=== PATIENT | female | born 1950 | race Caucasian/White ===

== ENCOUNTER → 2018-12-01 14:42 | Outpatient (CLI) | payer BC, MEDICARE, OTHER, SELFPAY ==
--- NOTE | 2018-12-01 | DI.ECHO.S_ITS ---
[facility] +---------+ : : [address] : [address] : : : : [place], : : : : [place] [id number] : : : : Phone: [phone] [id number] Echocardiogram Report + + :Name: AMAN JERONIMO Study Date: 12/01/2018 Height: 62 in : :[facility] Weight: 145 lb : : Gender: Female BSA: 1.7 m2 : :: 1950 Age: 68 yrs BP: 148/60 mmHg: :Reason For Study: DIZZINESS : :Ordering Physician: Judy : :Erika Montiel Performed By: Janis Mosquera : :Referring: JUDY HERRERA : + + Interpretation Summary Normal sinus rhythm. Normal LV size, wall thickness, wall motion and LV sysotlic function. EF is 60-65%. Severe LA enlargement with aneurysmal interatrial septum. Aortic sclerosis without stenosis. Mild MAC with mild associated MR. Procedure: A two-dimensional transthoracic echocardiogram with color flow and Doppler was performed. The study quality was technically adequate. There is no prior echocardiogram noted for this patient. The patient was in normal sinus rhythm during the exam. Left Ventricle: The left ventricle is normal in size, wall thickness, and systolic function without any focal wall motion abnormalities. The ejection fraction is estimated to be 60-65%. Diastolic parameters suggest a relaxation abnormality of the left ventricle, consistent with probable normal filling pressures. Right Ventricle: The right ventricle is normal in size and function. Atria: The left atrium is severely dilated. Right atrial size is normal. The atrial septum is aneurysmal. The interatrial septum bows toward right atrium consistent with elevated left atrial pressure. Mitral Valve: The mitral valve leaflets appear mildly thickened, but open well. There is mild mitral annular calcification. There is mild mitral regurgitation. Aortic Valve: The aortic valve is trileaflet. There is mild aortic valve sclerosis. The aortic valve opens well. There is discrete nodular thickening of the non- coronary cusp. There is trace aortic regurgitation. Tricuspid Valve: The tricuspid valve is normal. There is trace tricuspid regurgitation. The right ventricular systolic pressure is estimated to be at least 18 mmHg based on an estimated right atrial pressure of 3 mm Hg. Pulmonic Valve: The pulmonic valve is not well seen, but is grossly normal. There is trace pulmonic regurgitation. Great Vessels: The aortic root is normal size. The ascending aorta is normal in size. The aortic arch could not be visualized. The pulmonary is not well visualized. The IVC is of normal diameter and collapses greater than 50% with a sniff. This suggests a low right atrial pressure of 3 mm Hg. Pericardium/ Pleura There is no pericardial effusion. There is no pleural effusion. MMode/2D Measurements & Calculations LVIDd: 4.6 cm AoV Openin.60 cm LVIDs: 2.2 cm LVOT diam: 1.8 cm IVSd: 0.96 cm Ao root diam: 3.1 cm LVPWd: 0.95 cm asc Aorta Diam: 3.4 cm LV pacheco. diameter/BSA (cm/m^2): 2.7 LV sys. diameter/BSA (cm/m^2): 1.3 FS: 51.8 % EPSS: 0.35 cm LA A2 area: 23.1 cm2 RA long axis: 4.7 cm LA A4 area: 30.7 cm2 RA area: 12.9 cm2 LA length (vol): 5.6 cm RA vol: 29.7 ml LA vol: 106.6 ml RA : 17.8 ml/m2 LA vol index: 63.9 ml/m2 RVD1 (basal): 3.5 cm IVC diam: 1.5 cm RVD2 (mid): 2.6 cm TAPSE: 2.5 cm Doppler Measurements & Calculations Ao V2 max: 126.7 cm/sec LVOT Max Mehran: 105.6 cm/sec Ao V2 mean: 92.3 cm/sec LV V1 max P.5 mmHg Ao V2 VTI: 34.3 cm LV V1 VTI: 23.5 cm Ao max P.4 mmHg Ao mean P.7 mmHg LOKESH(I,D): 1.8 cm2 MV E max mehran: 108.8 cm/sec LOKESH(V,D): 2.2 cm2 MV A max mehran: 94.6 cm/sec LOKESH indexed to BSA (cm^2/m^2): 1.1 MV E/A: 1.1 sev ratio: 0.68 Med Peak E' Mehran: 5.6 cm/sec E/E' med: 19.5 Lat Peak E' Mehran: 6.3 cm/sec E/E' lat: 17.2 E/e' average: 18.4 MV dec time: 0.21 sec TR max mehran: 191.3 cm/sec TR max P.6 mmHg PA V2 max: 61.4 cm/sec SV(LVOT): 62.4 ml PA V2 mean: 44.9 cm/sec PA mean P.89 mmHg PA Accel Time: 0.06 sec Electronically signed by: Judy Herrera M.D. on Reading Physician:12/01/2018 05:50 PM
== END ==
PROVIDERS: PCP Internal Medicine; Visit Provider Internal Medicine
DX: I08.0 Rheumatic disorders of both mitral and aortic valves (principal); I25.3 Aneurysm of heart; R42 Dizziness and giddiness
CPT/HCPCS: 93306

== ENCOUNTER → 2018-12-04 14:16 | Outpatient (CLI) | payer BC, MEDICARE, OTHER, SELFPAY | PROVIDERS: PCP Internal Medicine; Visit Provider Internal Medicine | DX: M81.0 Age-related osteoporosis without current pathological fracture (principal); Z78.0 Asymptomatic menopausal state | CPT/HCPCS: 77080 ==

== ENCOUNTER → 2020-03-24 07:17 | Outpatient (CLI) | payer BC, MEDICARE, OTHER, SELFPAY ==
--- NOTE | 2020-03-24 | DI.MRI.S_ITS ---
PROCEDURE: MR FOOT LT WO/W CON INDICATIONS: 1st digit infection. TECHNIQUE: Noncontrast sagittal T1 spin echo and T2 fast spin echo with fat saturation, long-axis T1 spin echo and T2 fast spin echo with fat saturation; short-axis T1 spin echo, proton density fast spin echo, and T2 fast spin echo with fat saturation through the forefoot. Post-contrast short axis, long axis, and sagittal T1 spin echo with fat saturation through the forefoot. COMPARISON: [facility], MR, FOOT W&WO CONTRAST, 08/24/2015, 13:34. FINDINGS: Image quality: Partially degraded by inhomogeneous fat saturation of the digits. Bones and joints: There irregularity of the cortex of the distal tuft of the 1st digit with possible chronic fracture of the distal tuft. No suspicious osseous enhancement. No bone marrow contusions or metatarsal stress fractures. The sesamoid bones appear in expected positions, without internal edema. No metatarsophalangeal joint degeneration. No intraosseous lesions. Soft tissues: No suspicious soft tissue enhancement. There is moderate T2 signal elevation within the superficial dorsal soft tissues of the forefoot, which could indicate edema or cellulitis. There is mild ill-defined T2 signal elevation within the subcutaneous fat of the forefoot, also consistent with edema versus cellulitis. The visualized plantar foot muscles demonstrate normal signal and bulk. Visualized flexor and extensor tendons appear intact, without tenosynovitis. The distal insertions of the peroneus brevis and longus tendons appear intact. The principal Lisfranc ligament appears intact. No soft tissue ganglion cysts or bursal fluid collections. Sagittal images demonstrate no evidence for plantar plate tears. IMPRESSION: 1. No evidence of acute osteomyelitis. 2. Irregularity of the distal tuft of the 1st digit, suggestive of chronic fracture deformity and/or chronic osteomyelitis sequelae. Initial further assessment with plain films is recommended. 3. Superficial edema versus cellulitis within the dorsal and plantar aspects of the forefoot. Dictated by: Rosmery Jeffries M.D. on 03/24/2020 at 9:12 Approved by: Rosmery Jeffries M.D. on 03/24/2020 at 9:35
== END ==
PROVIDERS: PCP Internal Medicine; Referring Provider Internal Medicine; Visit Provider Internal Medicine
DX: L03.032 Cellulitis of left toe (principal)
CPT/HCPCS: 73720

== ENCOUNTER → 2020-03-31 11:41 | Outpatient (CLI) | payer BC, MEDICARE, OTHER, SELFPAY ==
--- NOTE | 2020-03-31 | DI.RAD.S_ITS ---
PROCEDURE: XR FOOT LT MIN 3V INDICATIONS: LEFT FOOT PAIN TECHNIQUE: 3 views of the foot were acquired. COMPARISON: [facility], CR, FOOT 3V RIGHT, 01/30/2010, 9:01. [facility], MR, MR FOOT LT WO/W CON, 03/24/2020, 7:43. FINDINGS: Bones: No acute fracture or dislocation. Cortical thinning is noted at the distal aspect of the distal phalanx of the left 1st digit. No other suspicious bony lesions. No acute fracture or dislocation. Soft tissues: No tibiotalar joint effusion. Achilles tendon appears normal. IMPRESSION: Cortical changes of the distal aspect of the left 1st digit suspicious for osteomyelitis as described on the comparison MRI dated March 24, 2020. Dictated by: Elissa Soto M.D. on 03/31/2020 at 14:40 Approved by: Elissa Soto M.D. on 03/31/2020 at 14:41
== END ==
PROVIDERS: PCP Internal Medicine; Referring Provider Internal Medicine; Visit Provider Podiatrist
DX: M79.672 Pain in left foot (principal)
CPT/HCPCS: 73630

== ENCOUNTER → 2020-04-20 12:34 | Outpatient (ROUT) | payer BC, MEDICARE, OTHER, SELFPAY ==
[2020-04-20 12:40] LABS: Add Manual Diff / Slide Review NO; Basophils Absolute Auto 0 /uL (0-100); Basophils Percent Auto 0.1 % (0-2); Eosinophils Absolute Auto 100 /uL (0-450); Eosinophils Percent Auto 2.4 % (2-4); Hematocrit 29.4 % (36-46); Lymphocytes Absolute Auto 700 /uL (1100-4500); Lymphocytes Percent Auto 21.8 % (25-40); Mean Corpuscular HGB Conc 33.9 % (30-36); Mean Corpuscular Hemoglobin 27.6 PG (26-34); Mean Corpuscular Volume 81.3 fL (80-100); Monocytes Absolute Auto 300 /uL (0-900); Monocytes Percent Auto 8.1 % (3-14); Neutrophils Absolute Auto 2100 /uL (1500-7000); Neutrophils Percent Auto 67.6 % (50-75); Platelet Count 69 X10^3/uL (150-400); Red Blood Cell Count 3.62 X10^6/uL (4.0-5.2); White Blood Cell Count 3.2 X10^3/uL (4.5-11.0)
[2020-04-20 13:30] LABS: BUN Creatinine Ratio 27.8 (6-22); Blood Urea Nitrogen 20 mg/dL (7-17); Calcium 8.8 mg/dL (8.4-10.2); Carbon Dioxide 26 mmol/L (22-32); Chloride 98 mmol/L (98-107); Estimated Glomerular Filt Rate > 60.0 mL/min (>60); Glucose 175 mg/dL (80-110); HEMOLYSIS < 15 (0-50); Sodium 131 mmol/L (137-145)
== END ==
PROVIDERS: PCP Internal Medicine; Visit Provider Internal Medicine Infectious Disease
DX: M86.9 Osteomyelitis, unspecified (principal)
CPT/HCPCS: 80048; 85025

== ENCOUNTER → 2020-07-11 15:15 | Outpatient (CLI) | payer BC, MEDICARE, OTHER, SELFPAY | PROVIDERS: PCP Internal Medicine; Referring Provider Surgery; Visit Provider Family Medicine | DX: I73.9 Peripheral vascular disease, unspecified (principal); T87.89 Other complications of amputation stump; L97.521 Non-pressure chronic ulcer of other part of left foot limited to breakdown of skin; M34.1 CR(E)ST syndrome | CPT/HCPCS: 99203; 99214 ==

== ENCOUNTER → 2020-07-18 13:47 | Outpatient (CLI) | payer BC, MEDICARE, OTHER, SELFPAY | PROVIDERS: PCP Internal Medicine; Referring Provider Internal Medicine; Visit Provider Family Medicine | DX: L97.521 Non-pressure chronic ulcer of other part of left foot limited to breakdown of skin (principal) | CPT/HCPCS: 99212 ==

== ENCOUNTER → 2020-08-03 11:17 | Outpatient (CLI) | payer BC, MEDICARE, OTHER, SELFPAY | PROVIDERS: PCP Internal Medicine; Referring Provider Internal Medicine; Visit Provider Family Medicine | DX: I73.9 Peripheral vascular disease, unspecified (principal); L97.521 Non-pressure chronic ulcer of other part of left foot limited to breakdown of skin; T87.89 Other complications of amputation stump; M34.1 CR(E)ST syndrome; Z89.511 Acquired absence of right leg below knee | CPT/HCPCS: 99213 ==

== ENCOUNTER → 2020-08-03 12:44 | Outpatient (CLI) | payer BC, MEDICARE, OTHER, SELFPAY ==
--- NOTE | 2020-08-03 12:51 | DI.RAD.S_ITS ---
PROCEDURE: XR TOE LT MIN 2V INDICATIONS: EVAL 3rd toe TECHNIQUE: 3 views of the left 3rd toe(s) acquired. COMPARISON: [facility], [facility], XR FOOT LT MIN 3V, 03/31/2020, 11:51. [facility], [facility], TOE MINIMUM 2 VIEWS LEFT, 10/24/2012, 16:18. FINDINGS: Bones: Status post postoperative changes of interval amputation of the left great toe at the level of the mid diaphysis of the 1st proximal phalanx. No osseous erosions, fractures, or suspicious abnormalities identified in the left toe. No acute fractures or dislocations. No suspicious bony lesions. Soft tissues: No suspicious soft tissue densities. There is mild soft tissue swelling of the left forefoot. IMPRESSION: 1. Mild soft tissue swelling of the left forefoot and 3rd toe without suspicious underlying osseous abnormalities. If there is persistent high clinical concern for osteomyelitis, MRI can be considered for further evaluation. 2. Status post interval amputation of the left great toe at the level of the mid diaphysis of the proximal 1st phalanx. Dictated by: Linden Hayden M.D. on 08/03/2020 at 13:33 Approved by: Linden Hayden M.D. on 08/03/2020 at 13:38
== END ==
PROVIDERS: PCP Internal Medicine; Referring Provider Family Medicine; Visit Provider Family Medicine
DX: L97.521 Non-pressure chronic ulcer of other part of left foot limited to breakdown of skin (principal); M79.89 Other specified soft tissue disorders; Z89.412 Acquired absence of left great toe
CPT/HCPCS: 73660

== ENCOUNTER → 2020-08-24 09:17 | Outpatient (CLI) | payer BC, MEDICARE, OTHER, SELFPAY | PROVIDERS: PCP Internal Medicine; Referring Provider Internal Medicine; Visit Provider Family Medicine | DX: I73.9 Peripheral vascular disease, unspecified (principal); S61.200A Unspecified open wound of right index finger without damage to nail, initial encounter; L97.529 Non-pressure chronic ulcer of other part of left foot with unspecified severity; Z89.511 Acquired absence of right leg below knee; Z89.412 Acquired absence of left great toe; M34.1 CR(E)ST syndrome | CPT/HCPCS: 97597; 99214 ==

== ENCOUNTER → 2020-09-29 11:50 | Outpatient (CLI) | payer BC, MEDICARE, OTHER, SELFPAY | PROVIDERS: PCP Internal Medicine; Referring Provider Internal Medicine; Visit Provider Family Medicine | DX: I70.245 Atherosclerosis of native arteries of left leg with ulceration of other part of foot (principal); S61.200A Unspecified open wound of right index finger without damage to nail, initial encounter; L97.529 Non-pressure chronic ulcer of other part of left foot with unspecified severity; Z89.511 Acquired absence of right leg below knee; Z89.412 Acquired absence of left great toe; Z95.5 Presence of coronary angioplasty implant and graft; M34.1 CR(E)ST syndrome | CPT/HCPCS: 97597; 99213 ==

== ENCOUNTER → 2020-12-21 16:24 | Outpatient (CLI) | payer BC, MEDICARE, OTHER, SELFPAY ==
--- NOTE | 2020-12-21 | DI.US.S_ITS ---
PROCEDURE: US ABDOMEN LIMITED INDICATIONS: ELEVATED LIVER FUNCTION TEST TECHNIQUE: Real-time scanning was performed of the abdominal and retroperitoneal organs, with image documentation. COMPARISON: None. FINDINGS: Liver: Liver is normal in size and homogeneous in echotexture. Gallbladder: Nondilated. Avascular isoechoic/echogenic masslike focus measuring at 3.1 x 2.1 x 1.6 cm. This appears to extend to the proximal cystic duct. No posterior acoustic shadowing. Normal gallbladder wall thickness. No pericholecystic fluid. Negative sonographic Huang's sign. Biliary ducts: Intrahepatic bile ducts are non-dilated. Extrahepatic bile duct caliber measures 6 mm. Normal is 6-7 mm or less in diameter, or 10 mm or less post-cholecystectomy. Pancreas: Visualized portions of the pancreas are sonographically normal. IMPRESSION: 1. Masslike material within the gallbladder measuring 3.1 cm. No internal vascularity is demonstrated. This has the appearance of tumefactive sludge. Gallstone or gallbladder carcinoma could have a similar appearance. -Recommend MRI or CT with IV contrast for further characterization to exclude enhancing lesion. 2. No acute cholecystitis. 3. No biliary ductal dilatation seen. Dictated by: Tripp Kern M.D. on 12/21/2020 at 17:36 Approved by: Tripp Kern M.D. on 12/21/2020 at 17:42
== END ==
PROVIDERS: PCP Internal Medicine; Referring Provider Physician Assistant; Visit Provider Physician Assistant
DX: R79.89 Other specified abnormal findings of blood chemistry (principal); K82.9 Disease of gallbladder, unspecified; K80.20 Calculus of gallbladder without cholecystitis without obstruction
CPT/HCPCS: 76705

== ENCOUNTER → 2021-03-20 13:26 | Outpatient (CLI) | payer BC, MEDICARE, OTHER, SELFPAY | PROVIDERS: PCP Internal Medicine; Referring Provider Internal Medicine; Visit Provider Family Medicine | DX: T87.89 Other complications of amputation stump (principal); I73.9 Peripheral vascular disease, unspecified; L97.521 Non-pressure chronic ulcer of other part of left foot limited to breakdown of skin; Z89.511 Acquired absence of right leg below knee | CPT/HCPCS: 99214 ==

== ENCOUNTER → 2021-03-20 14:59 | Outpatient (CLI) | payer BC, MEDICARE, OTHER, SELFPAY ==
--- NOTE | 2021-03-20 | DI.RAD.S_ITS ---
PROCEDURE: XR CHEST 2V INDICATIONS: Asthma,eval for ostemycitis TECHNIQUE: 2 views of the chest were acquired. COMPARISON: [facility], , CHEST 2 VIEW, 06/11/2017, 17:09. FINDINGS: Surgical changes and devices: None. Lungs and pleura: Lungs are clear. Mild hyperinflation is seen. No pleural effusions or pneumothorax. Mediastinum: Mediastinal contours are normal. Heart size is normal. Bones and chest wall: No suspicious bony abnormalities. Soft tissues appear unremarkable. IMPRESSION: No acute cardiopulmonary pathology. Mild hyperinflation. Dictated by: Ruben Stiles M.D. on 03/20/2021 at 16:01 Approved by: Ruben Stiles M.D. on 03/20/2021 at 16:01
--- NOTE | 2021-03-20 | DI.RAD.S_ITS ---
PROCEDURE: XR FOOT LT MIN 3V INDICATIONS: Asthma,eval for ostemycitis TECHNIQUE: 3 views of the foot were acquired. COMPARISON: [facility], CR, XR FOOT LT MIN 3V, 03/31/2020, 11:51. FINDINGS: Bones: Patient is status post interval amputation of left great toe at the level of 1st distal phalangeal base. Surgical margin appears clean. There is also amputation of 3rd toe at the level of 3rd middle phalangeal shaft with with questionable erosive changes involving 3rd middle phalangeal stump. No acute fracture or dislocation. Midfoot and forefoot joint osteoarthritic changes are seen. No suspicious bony lesions. Soft tissues: No tibiotalar joint effusion. Achilles tendon appears normal. IMPRESSION: Post amputation changes at 1st and 3rd toes as above. Finding is concerning for osteomyelitis involving 3rd middle phalangeal stump with subtle erosive changes. No fracture or dislocation. Surgical margin of great toe is grossly intact. Dictated by: Ruben Stiles M.D. on 03/20/2021 at 16:01 Approved by: Ruben Stiles M.D. on 03/20/2021 at 16:04
== END ==
PROVIDERS: PCP Internal Medicine; Referring Provider Family Medicine; Visit Provider Family Medicine
DX: S91.102A Unspecified open wound of left great toe without damage to nail, initial encounter (principal); J45.909 Unspecified asthma, uncomplicated; Z89.412 Acquired absence of left great toe; Z89.422 Acquired absence of other left toe(s)
CPT/HCPCS: 71046; 73630

== ENCOUNTER 2021-06-21 12:08 | Emergency (ER) | payer BC, MEDICARE, OTHER, SELFPAY ==
[2021-06-21 12:23] VITALS: BP 136/60; PULSE 60; RESP 18; TEMP 36.6; BMI 24.7
--- NOTE | 2021-06-21 13:16 | ED_ITS ---
HPI - Extremity Problem <Reynaldo Bach PA-C - Last Filed: 06/21/21 19:49> General Chief complaint: Extremity Problem,Nontraumatic Stated complaint: Left elbow infection x1 day Time Seen by Provider: 06/21/21 12:57 Source: patient Mode of arrival: Ambulatory Limitations: no limitations History of Present Illness HPI Narrative: Patient is a 70-year-old female presenting to the emergency department today for an evaluation of left elbow pain. Patient states that she experienced clear drainage from an opening of a callus on her left elbow 3 nights ago. She explains that she cleaned the wound and covered it with the peers in and she notes that it appeared to be improving throughout Saturday and Saturday. However, she notes that last night she began to experience increased redness, swelling, warmth, and pain in her left elbow. Patient denies fever, chills, chest pain, shortness of breath, cough, abdominal pain, nausea, vomiting, diarrhea, dysuria. Patient explains that she experienced similar symptoms in the past on her right elbow that she successfully treated at home by herself. No other concerns voiced at this time. Related Data Home Medications Medication Instructions Recorded Confirmed aspirin 81 mg tablet,delayed 81 mg PO QDAY #0 11/14/12 06/22/21 release fluticasone 250 mcg-salmeterol 50 1 ea INHALATION BID #0 11/14/12 06/22/21 mcg/dose blistr powdr for inhalation (Advair Diskus) ibuprofen 200 mg tablet 400 mg PO PRN #0 11/14/12 06/22/21 atorvastatin 80 mg tablet (Lipitor) 80 mg PO DAILY 09/30/18 06/22/21 fluticasone 500 mcg-salmeterol 50 1 inhalation INHALATION BID 09/30/18 06/22/21 mcg/dose blistr powdr for inhalation (Advair Diskus) ipratropium 20 mcg-albuterol 100 1 puff INHALATION Q4HR 09/30/18 06/22/21 mcg/actuation mist for inhalation (Combivent Respimat) metoclopramide HCl 5 mg tablet 5 mg PO BEDTIME 09/30/18 06/22/21 (Reglan) montelukast 10 mg tablet 10 mg PO QPM 09/30/18 06/22/21 (Singulair) olmesartan 40 mg tablet (Benicar) 40 mg PO BEDTIME 09/30/18 06/22/21 omeprazole 20 mg capsule,delayed 20 mg PO BEDTIME 09/30/18 06/22/21 release pregabalin 200 mg capsule (Lyrica) 200 mg PO BID cap 09/30/18 06/23/21 sertraline 25 mg tablet 25 mg PO BEDTIME 09/30/18 06/22/21 amlodipine 5 mg tablet 5 mg PO BEDTIME 06/23/21 06/23/21 melatonin 5 mg PO BEDTIME 06/23/21 06/23/21 Previous Rx's Medication Instructions Recorded doxycycline hyclate 100 mg capsule 100 mg PO BID #14 cap 06/21/21 oxycodone 5 mg tablet 5 mg PO Q6H PRN #10 tab 06/21/21 Allergies Allergy/AdvReac Type Severity Reaction Status Date / Time cat dander Allergy Verified 06/22/21 14:03 nifedipine Allergy Verified 06/22/21 14:03 codeine [CODEINE] AdvReac Unknown N/V Verified 06/22/21 14:03 Review of Systems <Reynaldo Bach PA-C - Last Filed: 06/21/21 19:49> Constitutional Constitutional: Denies chills, Denies fatigue, Denies fever(s), Denies frequent falls, Denies lethargy and Denies weakness Eyes Eyes: Denies loss of vision ENT Ears, Nose, Mouth, and Throat: Denies dizziness, Denies neck pain and Denies throat swelling Cardiovascular Cardiovascular: Denies chest pain, Denies irregular heart rhythm, Denies lightheadedness, Denies palpitations, Denies dyspnea, Denies dyspnea on exertion and Denies orthopnea Respiratory Respiratory: Denies cough, Denies dyspnea, Denies dyspnea on exertion and Denies wheezing Gastrointestinal Gastrointestinal: Denies abdominal pain, Denies change in bowel habits, Denies diarrhea, Denies nausea and Denies vomiting Genitourinary Genitourinary: Denies hematuria, Denies flank pain, Denies urinary incontinence and Denies urinary urgency Musculoskeletal Musculoskeletal: Denies back pain, Reports arthralgias (Left elbow), Denies muscle weakness, Denies neck pain, Denies numbness and Denies tingling Integumentary/Breasts Skin/Breast: Reports erythema (Left elbow) and Reports skin swelling (Left elbow) Neurologic Neurologic: Denies behavioral changes, Denies confusion, Denies dizziness, Denies frequent falls, Denies loss of vision, Denies numbness, Denies tingling and Denies weakness Psychiatric Psychiatric: Denies behavioral changes and Denies confusion Endocrine Endocrine: Denies fatigue and Denies palpitations Allergic/Immunologic Allergic/Immunologic: Denies urticaria, Denies throat swelling and Denies wheezing Patient History <Reynaldo Bach PA-C - Last Filed: 06/21/21 19:49> Medical History Hyperlipidemia Hypertension Peripheral vascular disease Scleroderma Social History marital status: details: Spouse is retired physician household members: spouse Smoking Status: Never smoker alcohol intake: former Smoking Status: Never smoker Substance Use Type: does not use Exam <Reynaldo Bach PA-C - Last Filed: 06/21/21 19:49> Narrative Exam Narrative: GENERAL: 70 year old patient appears stated age. Well-developed patient, in no acute distress. HEAD: Atraumatic. Normocephalic. EYES: Pupils equal round and reactive. Extraocular motions intact. No scleral icterus. No injection or drainage. ENT: Nose without bleeding, purulent drainage. Throat without erythema, tonsillar hypertrophy or exudate. Airway patent. NECK: Trachea midline. Non tender CARDIOVASCULAR: Regular rate and rhythm without murmurs, gallops, or rubs. RESPIRATORY: Clear to auscultation. Breath sounds equal bilaterally. No wheezes, rales, or rhonchi. GASTROINTESTINAL: Abdomen soft, non-tender, nondistended. EXTREMITIES: No edema. Tenderness to palpation about the left elbow with an approximately 2.5 cm area erythema, fluctuance, and warmth with an overlying scab. BACK: Nontender without deformity or crepitance. No flank tenderness. NEURO: AOx3. SKIN: No rash or erythema of visible areas Initial Vital Signs Initial Vital Signs: Vital Signs Temperature 97.9 F 06/21/21 12:23 Pulse Rate 60 06/21/21 12:23 Respiratory Rate 18 06/21/21 12:23 Blood Pressure 136/60 06/21/21 12:23 <Graham Méndez DO - Last Filed: 06/23/21 07:17> Initial Vital Signs Initial Vital Signs: Vital Signs Temperature 97.9 F 06/21/21 12:23 Pulse Rate 60 06/21/21 12:23 Respiratory Rate 18 06/21/21 12:23 Blood Pressure 136/60 06/21/21 12:23 Procedures <Reynaldo Bach PA-C - Last Filed: 06/21/21 19:49> Abscess I/D I&D #1: Time of procedure: 14:50 Site: upper extremity (Left elbow) Side (if applicable): left Sedation/analgesia: none Local Anesthetic: lidocaine 1% Amount of anesthesia used (mL): 10 Technique: incised with #11 blade Amount of fluid expressed (mL): 6 Irrigation: No Packing used?: none Complications: pain Course <Reynaldo Bach PA-C - Last Filed: 06/21/21 19:49> Course Course Narrative: Patient is a 70-year-old female presenting to the emergency department today for an evaluation of left elbow pain. Orders Ordered: Discontinued Medications Lidocaine/Sodium Bicarbonate (Lido 1%/Sod Bicarb 8.4% (10ml) 10 Ml Syringe) 10 ml INJ NOW ONE Stop: 06/21/21 13:36 Last Admin: 06/21/21 15:22 Dose: 10 ml Documented by: LOLI Vital Signs Vital signs: Vital Signs - 8 hr 06/21/21 12:23 Temperature 97.9 F Pulse Rate 60 Respiratory Rate 18 Blood Pressure 136/60 <Graham Méndez DO - Last Filed: 06/23/21 07:17> Orders Ordered: Discontinued Medications Lidocaine/Sodium Bicarbonate (Lido 1%/Sod Bicarb 8.4% (10ml) 10 Ml Syringe) 10 ml INJ NOW ONE Stop: 06/21/21 13:36 Last Admin: 06/21/21 15:22 Dose: 10 ml Documented by: LOLI Vital Signs Vital signs: Vital Signs - 8 hr 06/21/21 12:23 Temperature 97.9 F Pulse Rate 60 Respiratory Rate 18 Blood Pressure 136/60 MDM - Extremity (Nontraumatic) <SAQIB Thomas Last Filed: 06/21/21 19:49> MDM Narrative Medical decision making narrative: Patient is a 70-year-old female presenting to the emergency department today for an evaluation of left elbow pain. To consider septic joint versus abscess. Overall history and physical examination are reassuring. Culture of wound was obtained after drainage was expressed from the wound during I and D procedure. Explained to the patient importance of monitoring the progress of the wound. Urged the patient to keep the wound clean and dry. Strict return precautions were discussed with the patient prior to discharge. Discharge Plan Departure Patient Disposition: Home Clinical Impression: Abscess Instructions: DI for Wound Infection Activity Restrictions/Additional Instructions: *You have been diagnosed with left elbow abscess *What to do: *Please continue to take your regular medications as directed. [X] New medication prescriptions sent to your pharmacy: [facility] - Doxycycline [X] New medication written as a paper prescription - Oxycodone [ ] No new medications given *Please follow up with your primary care provider in 24-48 hours, call for an appointment. Let them know you were seen in the Emergency Department and that we ask that you be seen in follow up. We will electronically transmit a record of today's note if your PCP is in our system *If you do not have a primary care provider please contact the [facility] Resource line at [phone]. They will ask some questions about your medical history and help get you set up with a doctor in the community. *Return to Emergency Department if you should have any new, worsening or concerning symptoms, such as fever greater than 101 F, shaking chills, worsening pain, worsening swelling, worsening drainage, persistent vomiting or other bothersome symptoms Prescriptions: New doxycycline hyclate 100 mg capsule 100 mg PO BID Qty: 14 0RF oxycodone 5 mg tablet 5 mg PO Q6H PRN (Reason: pain) Qty: 10 0RF No Action sertraline 25 mg tablet 25 mg PO BEDTIME 0RF Rx Instructions: take 3 tablets at bedtime. Advair Diskus 500-50 mcg/dose blister with device 1 inhalation INHALATION BID 0RF omeprazole 20 mg capsule,delayed release(DR/EC) 20 mg PO BEDTIME 0RF Combivent Respimat 20-100 mcg/actuation mist 1 puff INHALATION Q4HR 0RF atorvastatin [Lipitor] 80 mg tablet 80 mg PO DAILY 0RF olmesartan [Benicar] 40 mg tablet 40 mg PO BEDTIME 0RF montelukast [Singulair] 10 mg tablet 10 mg PO QPM 0RF metoclopramide HCl [Reglan] 5 mg tablet 5 mg PO BEDTIME 0RF Lyrica 200 mg capsule 200 mg PO BID 0RF fluticasone propion-salmeterol [Advair Diskus] 250 MCG/50 MCG blister with device 1 ea inhalation BID Qty: 0 0RF aspirin 81 MG tablet,delayed release (DR/EC) 81 mg PO QDAY Qty: 0 0RF ibuprofen 200 MG tablet 400 mg PO PRN Qty: 0 0RF amlodipine 5 mg tablet 5 mg PO BEDTIME 0RF melatonin 5 mg PO BEDTIME 0RF Referrals: Daron Pinto MD [Primary Care Provider] - <Graham Méndez DO - Last Filed: 06/23/21 07:17> Cosign ED Attending Cosignature Attestation: Dr Méndez Co-Sign Statement: I was available for consultation during this patient's emergency department visit. This chart is signed by myself for administrative purposes only. I did not have direct contact with this patient during this visit. They were seen independently by the APC.
[2021-06-21] MEDS: LIDO 1%/SOD BICARB 8.4% (10ML) 10 ML SYRINGE INJ (15:22)
== END 2021-06-21 15:23 | disposition home or self-care (01) ==
PROVIDERS: Emergency Provider Physician Assistant; PCP Internal Medicine
DX: L02.414 Cutaneous abscess of left upper limb (principal)
CPT/HCPCS: 10060; 87070; 87075; 87077; 87147; 87205; 99282

== ENCOUNTER 2021-06-22 09:58 | Inpatient (IN) | payer BC, MEDICARE, OTHER, SELFPAY ==
[2021-06-22] VITALS (14 sets, daily range): BP systolic 93–138; BP diastolic 44–55; PULSE 68–89; RESP 14–22; TEMP 36.3–37.1; O2SAT 92–96; BMI 24.7
--- NOTE | 2021-06-22 10:05 | ED.GENADULT ---
HPI - General Adult General Chief complaint: Extremity Problem,Nontraumatic Stated complaint: IND left elbow yesterday, fever, swelling Time Seen by Provider: 06/22/21 10:05 History of Present Illness HPI narrative: 70-year-old woman with a history of scleroderma of her hands, significant peripheral vascular disease with no personal history myocardial infarction or stroke, hypertension, hyperlipidemia asthma was seen yesterday in the emergency department with fluctuant area over her left elbow that was I and D. She was started on doxycycline. She returns today after developing a fever to 103 this morning, chills and rigors, increasing pain along the left arm and swelling down into her hand. There is continued drainage from the I&D site from yesterday over the olecranon. She denies vomiting, abdominal pain, diarrhea, headache, chest pain, palpitations, dyspnea or orthopnea. Related Data Home Medications Medication Instructions Recorded Confirmed aspirin 81 mg tablet,delayed 81 mg PO QDAY #0 11/14/12 09/30/18 release fluticasone 250 mcg-salmeterol 50 1 BID #0 11/14/12 09/30/18 mcg/dose blistr powdr for inhalation (Advair Diskus) ibuprofen 200 mg tablet 400 PRN #0 11/14/12 09/30/18 atorvastatin 80 mg tablet (Lipitor) 80 mg PO DAILY 09/30/18 09/30/18 diltiazem HCl 240 mg 240 mg PO DAILY 09/30/18 09/30/18 capsule,extended release 24 hr fluticasone 500 mcg-salmeterol 50 1 inhalation INHALATION BID 09/30/18 09/30/18 mcg/dose blistr powdr for inhalation (Advair Diskus) ipratropium 20 mcg-albuterol 100 1 puff INHALATION Q6H 09/30/18 09/30/18 mcg/actuation mist for inhalation (Combivent Respimat) metoclopramide HCl 5 mg tablet 5 mg PO DAILY 09/30/18 09/30/18 (Reglan) montelukast 10 mg tablet 10 mg PO QPM 09/30/18 09/30/18 (Singulair) olmesartan 40 mg tablet (Benicar) 40 mg PO DAILY 09/30/18 09/30/18 omeprazole 20 mg capsule,delayed 20 mg PO DAILY 09/30/18 09/30/18 release pregabalin 200 mg capsule (Lyrica) 200 mg PO BID cap 09/30/18 09/30/18 sertraline 25 mg tablet 25 mg PO DAILY 09/30/18 09/30/18 Previous Rx's Medication Instructions Recorded doxycycline hyclate 100 mg capsule 100 mg PO BID #14 cap 06/21/21 oxycodone 5 mg tablet 5 mg PO Q6H PRN #10 tab 06/21/21 Allergies Allergy/AdvReac Type Severity Reaction Status Date / Time cat dander Allergy Verified 06/21/21 12:29 nifedipine Allergy Verified 06/21/21 12:29 codeine [CODEINE] AdvReac Unknown N/V Verified 09/30/18 09:35 Review of Systems Review of Systems Narrative: Remainder of complete review of systems is otherwise unremarkable except for that included in the HPI. Patient History Medical History Hyperlipidemia Hypertension Peripheral vascular disease Scleroderma Social History Smoking Status: Never smoker Smoking Status: Never smoker Substance Use Type: does not use Exam Narrative Exam Narrative: General: Healthy appearing, in no acute distress. Able to give a complete and coherent history. Well-nourished well-developed HEENT: Moist mucous membranes, normal sclera with reactive pupils, Neck: No JVD, supple Respiratory: Lungs are clear to auscultation, mild basilar scattered wheeze but no rales no rhonchi. Full and symmetrical air movement Cardiac: Regular rate and rhythm no murmurs no bruits Abdomen: Soft, nontender, good bowel tones, no flank pain Skin: Warm and dry, no rashes. Left arm with increasing erythema but no demarcated cellulitis from the I&D joint over the olecranon Neurologic: Grossly neurologically intact with no obvious asymmetries or abnormalities. Fully alert and oriented Extremities: Left foot with partial amputations of the 1st and 3rd toes healing nicely. Left arm significantly more edematous than the right. She is able to almost fully flex the elbow with significant tenderness, with flexion of the significant amount of gross purulence comes out of the small wound over the olecranon. 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) Stat CRP [C-Reactive Protein Quant] Stat Complete Blood Count AUTO DIFF Stat Comprehensive Metabolic Panel Stat Lactate (Lactic Acid) Stat Troponin & CK Cardiac Panel Stat 06/22/21 10:16 EKG-12 Lead Stat 06/22/21 10:20 XR elbow LT 2V Stat 06/22/21 10:48 Ictotest Urine Stat Urinalysis and Microscopic Stat Urine Culture Stat 06/22/21 11:05 Blood Culture Stat Sodium Chloride (Normal Saline 0.9%) 1,837.05 mls @ 612.35 mls/hr 30 ml/kg infuse over 3 hr (1837.05 ml) IV NOW ONE Stop: 06/22/21 13:14 Last Admin: 06/22/21 10:58 Dose: 612.35 mls/hr Documented by: TEODORA Vancomycin HCl (Vancomycin) 1,000 mg in 200 mls @ 200 mls/hr IV NOW ONE Stop: 06/22/21 12:44 Last Admin: 06/22/21 11:48 Dose: 200 mls/hr Documented by: TEODORA Discontinued Medications Ceftriaxone Sodium 2,000 mg/ (Sodium Chloride) 100 mls @ 200 mls/hr IV NOW ONE Stop: 06/22/21 10:19 Last Infusion: 06/22/21 11:49 Dose: 0 mls/hr Documented by: Admin: 06/22/21 11:00 Dose: 200 mls/hr Documented by: TEODORA Lidocaine/Sodium Bicarbonate (Lido 1%/Sod Bicarb 8.4% (10ml) 10 Ml Syringe) 10 ml INJ NOW ONE Stop: 06/22/21 11:16 Last Admin: 06/22/21 11:20 Dose: 10 ml Documented by: TEODORA Vancomycin HCl (Vancomycin Per Pharmacy) 1 request MISC NOW ONE Stop: 06/22/21 10:22 Vital Signs Vital signs: Vital Signs - 8 hr 06/22/21 10:11 06/22/21 10:30 06/22/21 11:17 Temperature 98.7 F Pulse Rate 78 69 Respiratory Rate 18 21 Blood Pressure 93/50 L 102/51 L Pulse Oximetry 94 06/22/21 11:18 06/22/21 11:30 06/22/21 11:59 Temperature 98.0 F Pulse Rate 68 71 Respiratory Rate 18 22 Blood Pressure 110/52 L 97/52 L Pulse Oximetry 94 Medical Decision Making Lab Data Result diagrams: 06/22/21 10:15 06/22/21 10:15 Labs: Lab Results 06/22/21 06/22/21 06/22/21 Range/Units 10:15 10:15 10:15 WBC 12.0 H (4.5-11.0) X10^3/uL RBC 3.70 L (4.0-5.2) X10^6/uL Hgb 9.6 L (12.0-16.0) g/dL Hct 28.8 L (36-46) % MCV 77.8 L (80-100) fL MCH 26.0 (26-34) PG MCHC 33.3 (30-36) % RDW 15.8 H (11.6-14.8) % Plt Count 79 L (150-400) X10^3/uL Neut % (Auto) 91.9 H (50-75) % Lymph % (Auto) 3.1 L (25-40) % [place] % (Auto) 4.9 (3-14) % Eos % (Auto) 0.0 L (2-4) % Baso % (Auto) 0.1 (0-2) % Neut # (Auto) 88829 H (2901-8578) /uL Lymph # (Auto) 400 L (9492-9061) /uL [place] # (Auto) 600 (0-900) /uL Eos # (Auto) 0 (0-450) /uL Baso # (Auto) 0 (0-100) /uL Sodium 123 L (137-145) mmol/L Potassium 4.3 (3.4-5.1) mmol/L Chloride 92 L (98-107) mmol/L Carbon Dioxide 22 (22-32) mmol/L BUN 23 H (7-17) mg/dL Creatinine 1.31 H (0.52-1.04) mg/dL Estimated GFR 40.1 L (>60) mL/min BUN/Creatinine Ratio 17.6 (6-22) Glucose 93 (80-110) mg/dL Lactate 0.8 (0.7-2.1) mmol/L Calcium 9.0 (8.4-10.2) mg/dL Total Bilirubin 0.8 (0.2-1.3) mg/dL AST 84 H (14-36) IU/L ALT 106 H (<35) IU/L Alkaline Phosphatase 231 H (38-126) U/L Total Creatine Kinase 77 (30-135) U/L CK-MB (CK-2) TNP CK-MB (CK-2) Rel Index TNP Troponin I < 0.012 (0.01-0.034) ng/mL Total Protein 6.6 (6.3-8.2) g/dL Albumin 3.7 (3.5-5.0) g/dL Globulin 2.9 (1.7-4.1) g/dL Albumin/Globulin Ratio 1.3 (1.0-2.8) Urine Color Urine Appearance Urine pH (4.5-8.0) Ur Specific [place] (1.000-1.035) Urine Protein (Negative) Urine Glucose (UA) (Negative) g/dL Urine Ketones (NEGATIVE) Urine Occult Blood (Negative) Urine Nitrate (Negative) Urine Bilirubin (NEGATIVE) Ur Bilirubin Confirm (Negative) Urine Urobilinogen (0.2) E.U./dL Ur Leukocyte Esterase (NEGATIVE) Urine RBC (0-5/HPF) Urine WBC (0-5/HPF) Urine Bacteria (None) Ur Culture Indicated? SARS-CoV-2 (PCR) (Negative) 06/22/21 06/22/21 Range/Units 10:15 10:48 WBC (4.5-11.0) X10^3/uL RBC (4.0-5.2) X10^6/uL Hgb (12.0-16.0) g/dL Hct (36-46) % MCV (80-100) fL MCH (26-34) PG MCHC (30-36) % RDW (11.6-14.8) % Plt Count (150-400) X10^3/uL Neut % (Auto) (50-75) % Lymph % (Auto) (25-40) % [place] % (Auto) (3-14) % Eos % (Auto) (2-4) % Baso % (Auto) (0-2) % Neut # (Auto) (4289-2992) /uL Lymph # (Auto) (6914-0249) /uL [place] # (Auto) (0-900) /uL Eos # (Auto) (0-450) /uL Baso # (Auto) (0-100) /uL Sodium (137-145) mmol/L Potassium (3.4-5.1) mmol/L Chloride (98-107) mmol/L Carbon Dioxide (22-32) mmol/L BUN (7-17) mg/dL Creatinine (0.52-1.04) mg/dL Estimated GFR (>60) mL/min BUN/Creatinine Ratio (6-22) Glucose (80-110) mg/dL Lactate (0.7-2.1) mmol/L Calcium (8.4-10.2) mg/dL Total Bilirubin (0.2-1.3) mg/dL AST (14-36) IU/L ALT (<35) IU/L Alkaline Phosphatase (38-126) U/L Total Creatine Kinase (30-135) U/L CK-MB (CK-2) CK-MB (CK-2) Rel Index Troponin I (0.01-0.034) ng/mL Total Protein (6.3-8.2) g/dL Albumin (3.5-5.0) g/dL Globulin (1.7-4.1) g/dL Albumin/Globulin Ratio (1.0-2.8) Urine Color Yellow Urine Appearance Cloudy Urine pH 5.0 (4.5-8.0) Ur Specific [place] 1.015 (1.000-1.035) Urine Protein 1+ H (Negative) Urine Glucose (UA) Negative (Negative) g/dL Urine Ketones Trace H (NEGATIVE) Urine Occult Blood 3+ H (Negative) Urine Nitrate Negative (Negative) Urine Bilirubin 1+ H (NEGATIVE) Ur Bilirubin Confirm Negative (Negative) Urine Urobilinogen 0.2 (0.2) E.U./dL Ur Leukocyte Esterase 2+ H (NEGATIVE) Urine RBC 30-100/hpf H (0-5/HPF) Urine WBC 5-10/hpf H (0-5/HPF) Urine Bacteria Occasional (0-1) (None) Ur Culture Indicated? Specimen cultured SARS-CoV-2 (PCR) Negative (Negative) Hyponatremia, dehydration with creatinine bumped from 0.7 up to 1.3. Elevated AST ALT alkaline phosphatase. Lactic acid is normal at 0.8. MDM Narrative Medical decision making narrative: 70-year-old woman who presents with infection of the left elbow. Started with some redness at the elbow from cracked skin. Was drained yesterday from the emergency department and cultures etc. are pending. At that point there was no additional finding and no swelling to the arm. She was started on doxycycline. This morning she is significantly worse with gross purulence coming from the site it is unclear if this is just an infected olecranon or actually a septic joint. She presents with a blood pressure of 93/50 but she is not significantly tachycardic. She is meeting criteria for sepsis and sepsis protocols including fluid resuscitation or initiated. Antibiotics in the form of ceftriaxone and vancomycin are started. As the wound was cultured yesterday this is not repeated. X-rays will be obtained. Labs are all currently pending. Did contact Dr. Santos, orthopedist, patient will need admission for developing cellulitis and concern for sepsis and may need orthopedic intervention to fully clean the the elbow and help determine if this is truly septic joint or just a septic bursitis. Labs returning. Lactic acid is not elevated however she is slightly dehydrated with mom in her creatinine. Mildly hyponatremic. She has responded nicely to the fluid bolus. Dr. Michele has come into the ED and done a more thorough I and D of the olecranon bursa in the departmetn. She does not feel like this is a septic arthritis. 12:11 Reviewed with Hospitalist, Dr Davenport. Admission accepted. At this time, she will need admission for IV antibiotics for an infected olecranon bursitis with developing cellulitis, hyponatremia and acute kidney injury. She is safe for transfer to the floor findings and plan reviewed with both she and her . Questions are answered. Discharge Plan Departure Patient Disposition: Admitted As Inpatient Clinical Impression: Septic olecranon bursitis of left elbow, Cellulitis of arm, left, Acute hyponatremia, Acute kidney injury, Acute dehydration
--- NOTE | 2021-06-22 10:20 | DI.RAD.S_ITS ---
PROCEDURE: XR ELBOW LT 2V INDICATIONS: infection, draining TECHNIQUE: 2 views of the elbow were acquired. COMPARISON: None. FINDINGS: Bones: No fractures or dislocations. No suspicious bony lesions. Age-appropriate bony degenerative changes are seen. Soft tissues: Generalized soft tissue swelling is seen. There is gas seen involving the posterior aspect elbow. IMPRESSION: Soft tissue swelling and soft tissue gas can be seen, which is consistent with the given clinical history. Dictated by: Emery Brand M.D. on 06/22/2021 at 9:56 Approved by: Emery Brand M.D. on 06/22/2021 at 9:57
[2021-06-22 10:35] LABS: Add Manual Diff / Slide Review NO; Basophils Absolute Auto 0 /uL (0-100); Basophils Percent Auto 0.1 % (0-2); Eosinophils Absolute Auto 0 /uL (0-450); Hematocrit 28.8 % (36-46); Hemoglobin 9.6 g/dL (12.0-16.0); Lymphocytes Absolute Auto 400 /uL (1100-4500); Lymphocytes Percent Auto 3.1 % (25-40); Mean Corpuscular HGB Conc 33.3 % (30-36); Mean Corpuscular Volume 77.8 fL (80-100); Monocytes Absolute Auto 600 /uL (0-900); Monocytes Percent Auto 4.9 % (3-14); Neutrophils Absolute Auto 11000 /uL (1500-7000); Neutrophils Percent Auto 91.9 % (50-75); Platelet Count 79 X10^3/uL (150-400); Red Cell Distribution Width 15.8 % (11.6-14.8)
[2021-06-22 10:44] LABS: Lactate (Lactic Acid) 0.8 mmol/L (0.7-2.1)
[2021-06-22 10:45] LABS: Alanine Aminotransferase 106 IU/L (<35); Albumin 3.7 g/dL (3.5-5.0); Albumin Globulin Ratio 1.3 (1.0-2.8); Alkaline Phosphatase 231 U/L (38-126); Aspartate Aminotransferase 84 IU/L (14-36); BUN Creatinine Ratio 17.6 (6-22); Bilirubin Total 0.8 mg/dL (0.2-1.3); Blood Urea Nitrogen 23 mg/dL (7-17); Carbon Dioxide 22 mmol/L (22-32); Chloride 92 mmol/L (98-107); Creatine Kinase 77 U/L (30-135); Estimated Glomerular Filt Rate 40.1 mL/min (>60); Globulin 2.9 g/dL (1.7-4.1); Glucose 93 mg/dL (80-110); HEMOLYSIS < 15 (0-50); Potassium 4.3 mmol/L (3.4-5.1); Sodium 123 mmol/L (137-145); Total Protein 6.6 g/dL (6.3-8.2)
[2021-06-22 10:56] LABS: Troponin I < 0.012 ng/mL (0.01-0.034)
[2021-06-22] MEDS: SODIUM CHLORIDE 0.9% 1,837.05 ML 612.35 ML IV (10:58)
[2021-06-22] MEDS: cefTRIAXone 2,000 MG in SODIUM CHLORIDE 0.9% 100 ML 200 ML IV (11:00)
[2021-06-22] MEDS: LIDO 1%/SOD BICARB 8.4% (10ML) 10 ML SYRINGE INJ (11:20)
[2021-06-22 11:25] LABS: COVID19 - ADMIT (NP swab/PCR) Negative (Negative)
[2021-06-22 11:31] LABS: Appearance Urine UA CLOUDY; Bilirubin Urine UA 1+ (NEGATIVE); Color Urine UA YELLOW; Glucose Urine UA NEGATIVE (Negative); Ketones Urine UA TRACE (NEGATIVE); Leukocyte Esterase Urine UA 2+ (NEGATIVE); Nitrite Urine UA NEGATIVE (Negative); Occult Blood Urine UA 3+ (Negative); Protein Urine UA 1+ (Negative); Specific Gravity Urine UA 1.015 (1.000-1.035); Urobilinogen Urine UA 0.2 E.U./dL (0.2)
[2021-06-22 11:46] LABS: Ictotest Urine Negative (Negative)
[2021-06-22 11:47] LABS: Bacteria Urine Occasional (0-1); Culture Indicated Urine Specimen Cultured; RBC Urine 30-100/HPF (0-5/HPF); WBC Urine 5-10/HPF (0-5/HPF)
[2021-06-22] MEDS: VANCOMYCIN 1,000 MG/200 ML PIGGYBACK 200 MG IV (11:48)
--- NOTE | 2021-06-22 12:11 | PM.CN ---
History of Present Illness Consult details Date Patient Seen: 06/22/21 Time Patient Seen: 12:11 Chief complaint: IND left elbow yesterday, fever, swelling Reason for consult: Infection? Requesting provider: Farnaz Castellanos Narrative: Patient is a 70-year-old female that has had 3 days of redness increased pain along with drainage from her left elbow. She reports several months of pain and swelling but states that acutely began to drain on Saturday and has gotten worse since. She was in the ER yesterday seen by an ER PA reportedly did an I&D and took a culture. She was discharged with doxycycline steak and 2 pills. She reports awaking this morning feeling generally ?bad? had a fever and was brought back to the hospital. 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 She has vascular surgeons and a air transportation provider at [place] daughter taking care of her for these. Meds Home Medications and Allergies Home Medications Medication Instructions Recorded Confirmed Type aspirin 81 mg tablet,delayed 81 mg PO QDAY #0 11/14/12 09/30/18 History release fluticasone 250 mcg-salmeterol 50 1 BID #0 11/14/12 09/30/18 History mcg/dose blistr powdr for inhalation (Advair Diskus) ibuprofen 200 mg tablet 400 PRN #0 11/14/12 09/30/18 History atorvastatin 80 mg tablet (Lipitor) 80 mg PO DAILY 09/30/18 09/30/18 History diltiazem HCl 240 mg 240 mg PO DAILY 09/30/18 09/30/18 History capsule,extended release 24 hr fluticasone 500 mcg-salmeterol 50 1 inhalation INHALATION BID 09/30/18 09/30/18 History mcg/dose blistr powdr for inhalation (Advair Diskus) ipratropium 20 mcg-albuterol 100 1 puff INHALATION Q6H 09/30/18 09/30/18 History mcg/actuation mist for inhalation (Combivent Respimat) metoclopramide HCl 5 mg tablet 5 mg PO DAILY 09/30/18 09/30/18 History (Reglan) montelukast 10 mg tablet 10 mg PO QPM 09/30/18 09/30/18 History (Singulair) olmesartan 40 mg tablet (Benicar) 40 mg PO DAILY 09/30/18 09/30/18 History omeprazole 20 mg capsule,delayed 20 mg PO DAILY 09/30/18 09/30/18 History release pregabalin 200 mg capsule (Lyrica) 200 mg PO BID cap 09/30/18 09/30/18 History sertraline 25 mg tablet 25 mg PO DAILY 09/30/18 09/30/18 History doxycycline hyclate 100 mg capsule 100 mg PO BID #14 cap 06/21/21 Rx oxycodone 5 mg tablet 5 mg PO Q6H PRN #10 tab 06/21/21 Rx Allergies Allergy/AdvReac Type Severity Reaction Status Date / Time cat dander Allergy Verified 06/21/21 12:29 nifedipine Allergy Verified 06/21/21 12:29 codeine [CODEINE] AdvReac Unknown N/V Verified 09/30/18 09:35 Review of Systems Review of Systems Narrative: Peripheral vascular disease status post below-knee amputation on the right and toe amputations on the left. History of liver and kidney insufficiency. History of olecranon bursitis Exam Vital Signs (past 8 hours): - 06/22/21 10:11 06/22/21 10:30 06/22/21 11:17 Temperature 98.7 F Pulse Rate 78 69 Respiratory Rate 18 21 Blood Pressure 93/50 L 102/51 L Pulse Oximetry 94 06/22/21 11:18 06/22/21 11:30 06/22/21 11:59 Temperature 98.0 F Pulse Rate 68 71 Respiratory Rate 18 22 Blood Pressure 110/52 L 97/52 L Pulse Oximetry 94 Oxygen Delivery Method Room Air Narrative Exam Narrative: Alert oriented female no acute distress lying in bed. Respirations unlabored on room air. Lungs clear to auscultation. Heart regular rate. Left upper extremity with dressing on the elbow this is removed there is induration along the extensor surface of the elbow and over the olecranon bursa. There is a punctate ink pin tip size area with scant drainage expressed antecubital fossa is soft. Moderate swelling of the hand and wrist in a dependent fashion. Is able to demonstrate finger flexion and extension but has difficulty forming full tight fist due to the swelling. Palpable radial pulse. Right lower extremity previous below-knee amputation. Left lower extremity has postop shoe in place Objective Imaging Left elbow x-ray: My impression: AP and lateral left elbow demonstrate air in the area of the olecranon bursa consistent with history of infection draining wound and I&D Labs Result Diagrams: 06/22/21 10:15 06/22/21 10:15 Labs: Laboratory Results - last 24 hr 06/22/21 06/22/21 06/22/21 10:15 10:15 10:15 WBC 12.0 H RBC 3.70 L Hgb 9.6 L Hct 28.8 L MCV 77.8 L MCH 26.0 MCHC 33.3 RDW 15.8 H Plt Count 79 L Neut % (Auto) 91.9 H Lymph % (Auto) 3.1 L [place] % (Auto) 4.9 Eos % (Auto) 0.0 L Baso % (Auto) 0.1 Neut # (Auto) 74912 H Lymph # (Auto) 400 L [place] # (Auto) 600 Eos # (Auto) 0 Baso # (Auto) 0 Sodium 123 L Potassium 4.3 Chloride 92 L Carbon Dioxide 22 BUN 23 H Creatinine 1.31 H Estimated GFR 40.1 L BUN/Creatinine Ratio 17.6 Glucose 93 Lactate 0.8 Calcium 9.0 Total Bilirubin 0.8 AST 84 H ALT 106 H Alkaline Phosphatase 231 H Total Creatine Kinase 77 CK-MB (CK-2) TNP CK-MB (CK-2) Rel Index TNP Troponin I < 0.012 Total Protein 6.6 Albumin 3.7 Globulin 2.9 Albumin/Globulin Ratio 1.3 Urine Color Urine Appearance Urine pH Ur Specific [place] Urine Protein Urine Glucose (UA) Urine Ketones Urine Occult Blood Urine Nitrate Urine Bilirubin Ur Bilirubin Confirm Urine Urobilinogen Ur Leukocyte Esterase Urine RBC Urine WBC Urine Bacteria Ur Culture Indicated? SARS-CoV-2 (PCR) 06/22/21 06/22/21 10:15 10:48 WBC RBC Hgb Hct MCV MCH MCHC RDW Plt Count Neut % (Auto) Lymph % (Auto) [place] % (Auto) Eos % (Auto) Baso % (Auto) Neut # (Auto) Lymph # (Auto) [place] # (Auto) Eos # (Auto) Baso # (Auto) Sodium Potassium Chloride Carbon Dioxide BUN Creatinine Estimated GFR BUN/Creatinine Ratio Glucose Lactate Calcium Total Bilirubin AST ALT Alkaline Phosphatase Total Creatine Kinase CK-MB (CK-2) CK-MB (CK-2) Rel Index Troponin I Total Protein Albumin Globulin Albumin/Globulin Ratio Urine Color Yellow Urine Appearance Cloudy Urine pH 5.0 Ur Specific [place] 1.015 Urine Protein 1+ H Urine Glucose (UA) Negative Urine Ketones Trace H Urine Occult Blood 3+ H Urine Nitrate Negative Urine Bilirubin 1+ H Ur Bilirubin Confirm Negative Urine Urobilinogen 0.2 Ur Leukocyte Esterase 2+ H Urine RBC 30-100/hpf H Urine WBC 5-10/hpf H Urine Bacteria Occasional (0-1) Ur Culture Indicated? Specimen cultured SARS-CoV-2 (PCR) Negative [facility] Medical History Hyperlipidemia Hypertension Peripheral vascular disease Scleroderma Social History marital status: details: Spouse is retired physician Tobacco & Substance Use Smoking Status: Never smoker Assessment & Plan Assessment and plan (1) Septic olecranon bursitis of left elbow: Problem details: Septic a left olecranon bursitis. There is a small poke hole tiny wound over the olecranon bursa and induration erythema. More anteriorly and along the elbow joint there is no swelling or tenderness. Patient does have some decreased range of motion due to pain around the bursa , but no signs of septic arthritis. Per report there was an I&D yesterday. It appears this was a small incision and has already mostly closed on my inspection today. I have discussed options with the patient. In general, I and D and packing with antibiotic is used for a draining septic bursitis. If this fails to resolve the symptoms then formal operative debridement and bursectomy would be indicated. Decision for I and D in the emergency room while she continues her septic workup. The area was anesthetized with lidocaine and 1.5 cm incision was made allowing expression of a scant amount of purulence as well as about 5 more mL of thin cloudy fluid. This was then irrigated using flush syringes and then packed with half-inch iodoform gauze. And a new wrap was placed. She will have daily dressing changes and packing changes. And antibiotics. If the appearance fails to improve or worsens, then would do formal operative bursectomy and debridement under anesthesia. She was growing strep from her previous culture. Agree with appropriate IV antibiotics. Blood cultures are pending. Inflammatory labs CRP and ESR have been ordered. Her white count does appear likely elevated from baseline is 12 today when previous levels have been 5 or 3. Would make her NPO at midnight tonight for wound check in the morning. Status: Acute (2) Peripheral vascular disease: Status: Acute COVID-19 COVID-19 status: Negative Time Spent With Patient Time with patient: less than 30 minutes Critical Care time: I spent a total of [] minutes of critical care time on this patient's care today; this time is exclusive of procedural time.
[2021-06-22 12:21] LABS: Erythrocyte Sedimentation Rate 73 MM/HR (0-20)
[2021-06-22 12:36] LABS: C-Reactive Protein Quant 19.2 mg/dL (<1.0)
--- NOTE | 2021-06-22 13:23 | PM.PROC.1 ---
Procedures Date/Time Date of procedure: 06/22/21 Time of procedure: 12:15 General Procedure description: Incision drainage left elbow olecranon septic bursitis Complications: none Abscess I/D Technique: incised with #11 blade Irrigation: Yes Packing used?: iodoform Bursa Procedures Site of procedure: olecranon bursa XRAY obtained: other (consistent with known draining bursitis) Antisepsis used: Chlorhexidine Local anesthetic used: lidocaine 1% Amount of anesthesia used (ml): 8 Fluid obtained (ml): 5 Fluid type: cloudy Additional comments: previous pin hole area of drainage identified. area cleansed. skin anesthetized with lido. 11 blade to incise 1.5 cm and hemostat to open up bursa cavity. cloudy fluid and small amount of purulence returned. cavity irrigated with saline and packed with iodoform gauze. new dressing applied.
[2021-06-22] MEDS: ENOXAPARIN 30 MG/0.3 ML SYRINGE SUBCUT (15:21)
[2021-06-22] MEDS: SODIUM CHLORIDE 0.9% 1,000 ML 70 ML IV (15:21)
[2021-06-22] MEDS: metroNIDAZOLE 500 MG TABLET PO ×2 (15:21→22:39)
--- NOTE | 2021-06-22 16:01 | PM.HP.1 ---
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 SHE DOES HAVE A HISTORY OF THE ED, HYPERLIPIDEMIA . . THE PATIENT PRESENTED TO THE HOSPITAL ON 06/21 WITH A LEFT ELBOW PAIN WHICH HAS BEEN ONGOING FOR A FEW DAYS PRIOR TO ARRIVAL THE ELBOW WAS I&Ded BY THE ER ATTENDING AND PATIENT WAS SENT HOME. SHE RETURNED TODAY WITH INCREASING PAIN TO THE AREA. SHE WAS SEEN BY ORTHOPEDIC SURGERY WHICH AGAIN PERFORMED A 2ND I&D.. SHE WAS TREATED WITH ANTIBIOTICS. DOXYCYCLINE WAS GIVEN. TODAY SHE RECEIVE VANCOMYCIN AND ROCEPHIN. SHE HAD NO OTHER COMPLAINT. REVIEW OF SYSTEMS NEGATIVE UNLESS NOTED ABOVE IN HPI Patient History Medical History Hyperlipidemia Hypertension Peripheral vascular disease Scleroderma Family & Social History Social History: household members spouse Prior Living Arrangements House Safety & Behavioral: Feels Safe in Current Yes Environment Been Physically Hurt or No Threatened By a Person Suicidal Ideation Description None Suicide Plan Description No Plan Tobacco & Substance use: Smoking Status Never smoker alcohol intake former Substance Use Type does not use Meds Home Medications and Allergies Home Medications Medication Instructions Recorded Confirmed Type aspirin 81 mg tablet,delayed 81 mg PO QDAY #0 11/14/12 06/22/21 History release fluticasone 250 mcg-salmeterol 50 1 BID #0 11/14/12 09/30/18 History mcg/dose blistr powdr for inhalation (Advair Diskus) ibuprofen 200 mg tablet 400 mg PO PRN #0 11/14/12 06/22/21 History atorvastatin 80 mg tablet (Lipitor) 80 mg PO DAILY 09/30/18 06/22/21 History fluticasone 500 mcg-salmeterol 50 1 inhalation INHALATION BID 09/30/18 09/30/18 History mcg/dose blistr powdr for inhalation (Advair Diskus) ipratropium 20 mcg-albuterol 100 1 puff INHALATION Q6H 09/30/18 09/30/18 History mcg/actuation mist for inhalation (Combivent Respimat) metoclopramide HCl 5 mg tablet 5 mg PO DAILY 09/30/18 09/30/18 History (Reglan) montelukast 10 mg tablet 10 mg PO QPM 09/30/18 09/30/18 History (Singulair) olmesartan 40 mg tablet (Benicar) 40 mg PO DAILY 09/30/18 09/30/18 History omeprazole 20 mg capsule,delayed 20 mg PO DAILY 09/30/18 09/30/18 History release pregabalin 200 mg capsule (Lyrica) 200 mg PO BID cap 09/30/18 09/30/18 History sertraline 25 mg tablet 25 mg PO DAILY 09/30/18 09/30/18 History doxycycline hyclate 100 mg capsule 100 mg PO BID #14 cap 06/21/21 06/22/21 Rx oxycodone 5 mg tablet 5 mg PO Q6H PRN #10 tab 06/21/21 Rx Allergies Allergy/AdvReac Type Severity Reaction Status Date / Time cat dander Allergy Verified 06/22/21 14:03 nifedipine Allergy Verified 06/22/21 14:03 codeine [CODEINE] AdvReac Unknown N/V Verified 06/22/21 14:03 Review of Systems Review of Systems Narrative: NEGATIVE UNLESS NOTED ABOVE IN THE HPI Exam Vital Signs (past 8 hours): - 06/22/21 10:11 06/22/21 10:30 06/22/21 11:17 Temperature 98.7 F Pulse Rate 78 69 Respiratory Rate 18 21 Blood Pressure 93/50 L 102/51 L Pulse Oximetry 94 06/22/21 11:18 06/22/21 11:30 06/22/21 11:59 Temperature 98.0 F Pulse Rate 68 71 Respiratory Rate 18 22 Blood Pressure 110/52 L 97/52 L Pulse Oximetry 94 06/22/21 12:00 06/22/21 12:30 06/22/21 14:09 Temperature Pulse Rate 70 73 73 Respiratory Rate 18 18 18 Blood Pressure 99/55 L 105/51 L Pulse Oximetry 93 92 94 Oxygen Delivery Method Room Air Narrative Exam Narrative: NO ACUTE DISTRESS. PATIENT IS ALERT ORIENTED X3. VITAL SIGNS STABLE HEAD ATRAUMATIC NORMOCEPHALIC NECK : SUPPLE WITHOUT ADENOPATHY NO CAROTID BRUITS EYE: EOMI, PERRLA, NORMAL CONJUNCTIVA; NO JAUNDICE CHEST: REGULAR RATE. NO RUBS. PMI IS NON DISPLACED. NO MURMURS; NORMAL S1-S2 PULMONARY: DECREASED BS OVER THE BASES. NO CRACKLES NOTED; NO INCREASED DULLNESS TO PERCUSSION ABDOMEN: SOFT. NONTENDER. NONDISTENDED. BOWEL SOUNDS ARE PRESENT IN ALL 4 QUADRANTS. NO MASS. EXTREMITIES: TOES MISSING ON THE LEFT FOOT. RIGHT BKA.NO EDEMA.. NO CYANOSIS CLUBBING NOTED. NEURO: CRANIAL NERVES 2-12 GROSSLY INTACT. NO FOCAL NEUROLOGICAL DEFICIT NOTED. POOR HEARING MSK: NORMAL RANGE OF MOTION FOR AGE. NO JOINT EFFUSION. SKIN: GOOD TURGOR.; NO RASHES : NORMAL EXTERNAL GENITALIA. PSYCH : APPROPRIATE MOOD AND AFFECT. ALERT AWAKE ORIENTED X3 Objective Labs Result Diagrams: 06/22/21 10:15 06/22/21 10:15 Labs: Laboratory Results - last 24 hr 06/22/21 06/22/21 06/22/21 10:15 10:15 10:15 WBC 12.0 H RBC 3.70 L Hgb 9.6 L Hct 28.8 L MCV 77.8 L MCH 26.0 MCHC 33.3 RDW 15.8 H Plt Count 79 L Neut % (Auto) 91.9 H Lymph % (Auto) 3.1 L [place] % (Auto) 4.9 Eos % (Auto) 0.0 L Baso % (Auto) 0.1 Neut # (Auto) 12104 H Lymph # (Auto) 400 L [place] # (Auto) 600 Eos # (Auto) 0 Baso # (Auto) 0 ESR Sodium 123 L Potassium 4.3 Chloride 92 L Carbon Dioxide 22 BUN 23 H Creatinine 1.31 H Estimated GFR 40.1 L BUN/Creatinine Ratio 17.6 Glucose 93 Lactate 0.8 Calcium 9.0 Total Bilirubin 0.8 AST 84 H ALT 106 H Alkaline Phosphatase 231 H Total Creatine Kinase 77 CK-MB (CK-2) TNP CK-MB (CK-2) Rel Index TNP Troponin I < 0.012 C-Reactive Protein Total Protein 6.6 Albumin 3.7 Globulin 2.9 Albumin/Globulin Ratio 1.3 Urine Color Urine Appearance Urine pH Ur Specific [place] Urine Protein Urine Glucose (UA) Urine Ketones Urine Occult Blood Urine Nitrate Urine Bilirubin Ur Bilirubin Confirm Urine Urobilinogen Ur Leukocyte Esterase Urine RBC Urine WBC Urine Bacteria Ur Culture Indicated? SARS-CoV-2 (PCR) 06/22/21 06/22/21 06/22/21 10:15 10:15 10:15 WBC RBC Hgb Hct MCV MCH MCHC RDW Plt Count Neut % (Auto) Lymph % (Auto) [place] % (Auto) Eos % (Auto) Baso % (Auto) Neut # (Auto) Lymph # (Auto) [place] # (Auto) Eos # (Auto) Baso # (Auto) ESR 73 H Sodium Potassium Chloride Carbon Dioxide BUN Creatinine Estimated GFR BUN/Creatinine Ratio Glucose Lactate Calcium Total Bilirubin AST ALT Alkaline Phosphatase Total Creatine Kinase CK-MB (CK-2) CK-MB (CK-2) Rel Index Troponin I C-Reactive Protein 19.2 H Total Protein Albumin Globulin Albumin/Globulin Ratio Urine Color Urine Appearance Urine pH Ur Specific [place] Urine Protein Urine Glucose (UA) Urine Ketones Urine Occult Blood Urine Nitrate Urine Bilirubin Ur Bilirubin Confirm Urine Urobilinogen Ur Leukocyte Esterase Urine RBC Urine WBC Urine Bacteria Ur Culture Indicated? SARS-CoV-2 (PCR) Negative 06/22/21 10:48 WBC RBC Hgb Hct MCV MCH MCHC RDW Plt Count Neut % (Auto) Lymph % (Auto) [place] % (Auto) Eos % (Auto) Baso % (Auto) Neut # (Auto) Lymph # (Auto) [place] # (Auto) Eos # (Auto) Baso # (Auto) ESR Sodium Potassium Chloride Carbon Dioxide BUN Creatinine Estimated GFR BUN/Creatinine Ratio Glucose Lactate Calcium Total Bilirubin AST ALT Alkaline Phosphatase Total Creatine Kinase CK-MB (CK-2) CK-MB (CK-2) Rel Index Troponin I C-Reactive Protein Total Protein Albumin Globulin Albumin/Globulin Ratio Urine Color Yellow Urine Appearance Cloudy Urine pH 5.0 Ur Specific [place] 1.015 Urine Protein 1+ H Urine Glucose (UA) Negative Urine Ketones Trace H Urine Occult Blood 3+ H Urine Nitrate Negative Urine Bilirubin 1+ H Ur Bilirubin Confirm Negative Urine Urobilinogen 0.2 Ur Leukocyte Esterase 2+ H Urine RBC 30-100/hpf H Urine WBC 5-10/hpf H Urine Bacteria Occasional (0-1) Ur Culture Indicated? Specimen cultured SARS-CoV-2 (PCR) Assessment & Plan Assessment & Plan narrative: PROBLEM LIST SEPTIC BURSITIS ON THE LEFT ELBOW POSSIBLE SEPSIS. PRESENT ON ARRIVAL URINARY TRACT INFECTION VERSUS POSSIBLE ACUTE PYELONEPHRITIS. BLOOD CULTURES LEUKOCYTOSIS. HYPONATREMIA. CAUSE IS UNCLEAR. NO HISTORY ALCOHOL ABUSE ANEMIA. LIKELY OF CHRONIC DISEASE. CHECK VITAMIN-D LEVEL THROMBOCYTOPENIA. CAUSE IS UNCLEAR ACUTE KIDNEY INJURY. LIKELY PRERENAL CREST SYNDROME /SCLERODERMA PER HISTORY HISTORY OF A RIGHT BKA PLAN IN REGARD TO THE ELBOW, CULTURE FROM THE ER GROWING STREPTOCOCCUS WILL CONTINUE CEFEPIME AND FLAGYL FOR NOW NO INDICATION FOR VANCOMYCIN SIGNIFICANT PYURIA ALSO APPRECIATED CEFEPIME SHOULD PROVIDE AMPLE COVERAGE FOR NOW WILL CONSIDER DEESCALATE ANTIBIOTIC THERAPY IN THE NEXT 24-48 HOURS IF NO COMPLICATION ARISES, SHE MIGHT BE ABLE TO BE DISCHARGED ON ORAL ANTIBIOTICS WE WILL FOLLOW LABS CLOSELY FOLLOW CULTURES CLOSELY WELL GI AND IF HE RELAXES ORDERED MOBILE ASSESSMENT TOLERATED PHYSICAL THERAPY AND OCCUPATIONAL THERAPY TO EVALUATE AND TREAT INDICATED ADDITIONAL MANAGEMENT PER CLINICAL COURSE Time Spent With Patient Critical Care time: I spent a total of [] minutes of critical care time on this patient's care today; this time is exclusive of procedural time. Quality VTE Deep Vein Thrombosis/Pulmonary Embolism Present on Admission: No
[2021-06-22] MEDS: LACTOBACILLUS ACIDOPHILUS TABLET 1 EACH PO (17:56)
[2021-06-22] MEDS: CEFEPIME 1 GM in SODIUM CHLORIDE 0.9% 100 ML 200 ML IV (17:56)
--- NOTE | 2021-06-22 19:00 | PC.NURSE ---
NEW DRSG PLACED TO LEFT ARM
[2021-06-22] MEDS: HEPARIN 5,000 UNIT/ML VIAL 5000 UNIT SUBCUT (22:38)
[2021-06-22] MEDS: METOCLOPRAMIDE HCL 5 MG TABLET PO (22:38)
[2021-06-22] MEDS: ACETAMINOPHEN 325 MG TABLET 650 MG PO (22:38)
[2021-06-22] MEDS: SENNOSIDES 8.6 MG TABLET 17.2 MG PO (22:39)
[2021-06-22 22:51] LABS: Sodium 130 mmol/L (137-145)
[2021-06-23] VITALS (14 sets, daily range): BP systolic 108–157; BP diastolic 52–76; PULSE 68–95; RESP 14–22; TEMP 36.4–36.9; O2SAT 93–97
[2021-06-23] MEDS: BUDESONIDE 0.5 MG/2 ML NEB INH ×2 (00:09→19:15)
[2021-06-23] MEDS: ALBUTEROL/IPRATROPIUM 3 ML AMPUL INH ×3 (00:09→19:14)
[2021-06-23] MEDS: AMLODIPINE 5 MG TABLET PO ×2 (02:31→21:46)
[2021-06-23] MEDS: PREGABALIN 50 MG CAPSULE 200 MG PO ×3 (02:31→21:43)
[2021-06-23] MEDS: MELATONIN 3 MG TABLET 6 MG PO ×2 (02:32→21:44)
[2021-06-23] MEDS: SERTRALINE 50 MG TABLET 75 MG PO ×2 (02:39→21:45)
[2021-06-23] MEDS: CEFEPIME 1 GM in SODIUM CHLORIDE 0.9% 100 ML 200 ML IV ×2 (06:11→17:32)
[2021-06-23] MEDS: SODIUM CHLORIDE 0.9% 1,000 ML 70 ML IV (06:19)
[2021-06-23 07:02] LABS: HEMOLYSIS < 15 (0-50)
[2021-06-23 07:05] LABS: Alanine Aminotransferase 73 IU/L (<35); Albumin 2.9 g/dL (3.5-5.0); Albumin Globulin Ratio 1.1 (1.0-2.8); Alkaline Phosphatase 178 U/L (38-126); Aspartate Aminotransferase 48 IU/L (14-36); BUN Creatinine Ratio 20.2 (6-22); Bilirubin Total 0.4 mg/dL (0.2-1.3); Blood Urea Nitrogen 19 mg/dL (7-17); Calcium 8.4 mg/dL (8.4-10.2); Carbon Dioxide 19 mmol/L (22-32); Chloride 102 mmol/L (98-107); Estimated Glomerular Filt Rate 58.9 mL/min (>60); Globulin 2.7 g/dL (1.7-4.1); Glucose 86 mg/dL (80-110); HEMOLYSIS < 15 (0-50); Potassium 3.9 mmol/L (3.4-5.1); Sodium 129 mmol/L (137-145); Total Protein 5.6 g/dL (6.3-8.2)
[2021-06-23 07:07] LABS: Iron < 10 ug/dL (37-170)
[2021-06-23 07:12] LABS: Percent Iron Saturation 4 % (15-50); Total Iron Binding Capacity 223 ug/dL (265-497); Transferrin 149 mg/dL (206-381)
[2021-06-23 07:34] LABS: Add Manual Diff / Slide Review NO; Basophils Absolute Auto 0 /uL (0-100); Basophils Percent Auto 0.1 % (0-2); Eosinophils Absolute Auto 0 /uL (0-450); Eosinophils Percent Auto 0.6 % (2-4); Hematocrit 26.1 % (36-46); Hemoglobin 8.6 g/dL (12.0-16.0); Lymphocytes Absolute Auto 300 /uL (1100-4500); Lymphocytes Percent Auto 4.2 % (25-40); Mean Corpuscular HGB Conc 33.1 % (30-36); Mean Corpuscular Hemoglobin 25.9 PG (26-34); Mean Corpuscular Volume 78.3 fL (80-100); Monocytes Absolute Auto 400 /uL (0-900); Monocytes Percent Auto 5.5 % (3-14); Neutrophils Absolute Auto 5800 /uL (1500-7000); Neutrophils Percent Auto 89.6 % (50-75); Red Blood Cell Count 3.33 X10^6/uL (4.0-5.2); Red Cell Distribution Width 16.5 % (11.6-14.8); White Blood Cell Count 6.5 X10^3/uL (4.5-11.0)
[2021-06-23 07:35] LABS: Platelet Count 59 X10^3/uL (150-400)
--- NOTE | 2021-06-23 08:44 | PM.PN.1 ---
Subjective Subjective Date Patient Seen: 06/23/21 Time Patient Seen: 08:45 Interval history: 70-year-old female with leukocytosis and left septic elbow olecranon bursitis. I and D and packing yesterday. Previous culture growing group C strep. Also found to have UTI. Sources quite a bit of pain and swelling to the left upper extremity. States it has been difficult to keep it elevated. Exam Vital Signs (past 8 hours): - 06/23/21 02:00 06/23/21 06:00 06/23/21 08:02 Temperature 97.9 F 98.5 F Pulse Rate 90 74 Respiratory Rate 18 14 Blood Pressure 117/58 L 108/52 L Pulse Oximetry 95 96 96 06/23/21 08:03 Temperature Pulse Rate Respiratory Rate Blood Pressure Pulse Oximetry 96 Oxygen Delivery Method Room Air Oxygen Flow Rate 0 Narrative Exam Narrative: Alert oriented female lying in bed. Vital signs stable. No fever this morning. Respiratory effort unlabored on room air. Left elbow was unwrapped and examined. There is moderate edema along the elbow forearm and into the fingers. No ascending cellulitis. 1 cm open incision around the olecranon bursa scant clear drainage. Packing in place. Area is cleansed and packing removed and new packing wick placed. Patient quite tender in the indurated area around the bursa and proximal extensor forearm. Flexor compartments are soft. Palpable radial pulse. Wound culture taken Objective Labs Result Diagrams: 06/23/21 06:15 06/23/21 06:15 Labs: Laboratory Results - last 24 hr 06/22/21 06/22/21 06/22/21 10:15 10:15 10:15 WBC 12.0 H RBC 3.70 L Hgb 9.6 L Hct 28.8 L MCV 77.8 L MCH 26.0 MCHC 33.3 RDW 15.8 H Plt Count 79 L Neut % (Auto) 91.9 H Lymph % (Auto) 3.1 L [place] % (Auto) 4.9 Eos % (Auto) 0.0 L Baso % (Auto) 0.1 Neut # (Auto) 95851 H Lymph # (Auto) 400 L [place] # (Auto) 600 Eos # (Auto) 0 Baso # (Auto) 0 ESR Sodium 123 L Potassium 4.3 Chloride 92 L Carbon Dioxide 22 BUN 23 H Creatinine 1.31 H Estimated GFR 40.1 L BUN/Creatinine Ratio 17.6 Glucose 93 Lactate 0.8 Calcium 9.0 Phosphorus Magnesium Iron TIBC % Saturation Transferrin Total Bilirubin 0.8 AST 84 H ALT 106 H Alkaline Phosphatase 231 H Total Creatine Kinase 77 CK-MB (CK-2) TNP CK-MB (CK-2) Rel Index TNP Troponin I < 0.012 C-Reactive Protein Total Protein 6.6 Albumin 3.7 Globulin 2.9 Albumin/Globulin Ratio 1.3 Urine Color Urine Appearance Urine pH Ur Specific [place] Urine Protein Urine Glucose (UA) Urine Ketones Urine Occult Blood Urine Nitrate Urine Bilirubin Ur Bilirubin Confirm Urine Urobilinogen Ur Leukocyte Esterase Urine RBC Urine WBC Urine Bacteria Ur Culture Indicated? SARS-CoV-2 (PCR) 06/22/21 06/22/21 06/22/21 10:15 10:15 10:15 WBC RBC Hgb Hct MCV MCH MCHC RDW Plt Count Neut % (Auto) Lymph % (Auto) [place] % (Auto) Eos % (Auto) Baso % (Auto) Neut # (Auto) Lymph # (Auto) [place] # (Auto) Eos # (Auto) Baso # (Auto) ESR 73 H Sodium Potassium Chloride Carbon Dioxide BUN Creatinine Estimated GFR BUN/Creatinine Ratio Glucose Lactate Calcium Phosphorus Magnesium Iron TIBC % Saturation Transferrin Total Bilirubin AST ALT Alkaline Phosphatase Total Creatine Kinase CK-MB (CK-2) CK-MB (CK-2) Rel Index Troponin I C-Reactive Protein 19.2 H Total Protein Albumin Globulin Albumin/Globulin Ratio Urine Color Urine Appearance Urine pH Ur Specific [place] Urine Protein Urine Glucose (UA) Urine Ketones Urine Occult Blood Urine Nitrate Urine Bilirubin Ur Bilirubin Confirm Urine Urobilinogen Ur Leukocyte Esterase Urine RBC Urine WBC Urine Bacteria Ur Culture Indicated? SARS-CoV-2 (PCR) Negative 06/22/21 06/22/21 06/23/21 10:48 22:35 06:15 WBC 6.5 RBC 3.33 L Hgb 8.6 L Hct 26.1 L MCV 78.3 L MCH 25.9 L MCHC 33.1 RDW 16.5 H Plt Count 59 L Neut % (Auto) 89.6 H Lymph % (Auto) 4.2 L [place] % (Auto) 5.5 Eos % (Auto) 0.6 L Baso % (Auto) 0.1 Neut # (Auto) 5800 Lymph # (Auto) 300 L [place] # (Auto) 400 Eos # (Auto) 0 Baso # (Auto) 0 ESR Sodium 130 L Potassium Chloride Carbon Dioxide BUN Creatinine Estimated GFR BUN/Creatinine Ratio Glucose Lactate Calcium Phosphorus Magnesium Iron TIBC % Saturation Transferrin Total Bilirubin AST ALT Alkaline Phosphatase Total Creatine Kinase CK-MB (CK-2) CK-MB (CK-2) Rel Index Troponin I C-Reactive Protein Total Protein Albumin Globulin Albumin/Globulin Ratio Urine Color Yellow Urine Appearance Cloudy Urine pH 5.0 Ur Specific [place] 1.015 Urine Protein 1+ H Urine Glucose (UA) Negative Urine Ketones Trace H Urine Occult Blood 3+ H Urine Nitrate Negative Urine Bilirubin 1+ H Ur Bilirubin Confirm Negative Urine Urobilinogen 0.2 Ur Leukocyte Esterase 2+ H Urine RBC 30-100/hpf H Urine WBC 5-10/hpf H Urine Bacteria Occasional (0-1) Ur Culture Indicated? Specimen cultured SARS-CoV-2 (PCR) 06/23/21 06/23/21 06:15 06:15 WBC RBC Hgb Hct MCV MCH MCHC RDW Plt Count Neut % (Auto) Lymph % (Auto) [place] % (Auto) Eos % (Auto) Baso % (Auto) Neut # (Auto) Lymph # (Auto) [place] # (Auto) Eos # (Auto) Baso # (Auto) ESR Sodium 129 L Potassium 3.9 Chloride 102 Carbon Dioxide 19 L BUN 19 H Creatinine 0.94 Estimated GFR 58.9 L BUN/Creatinine Ratio 20.2 Glucose 86 Lactate Calcium 8.4 Phosphorus 3.0 Magnesium 2.0 Iron < 10 L TIBC 223 L % Saturation 4 L Transferrin 149 L Total Bilirubin 0.4 AST 48 H ALT 73 H Alkaline Phosphatase 178 H Total Creatine Kinase CK-MB (CK-2) CK-MB (CK-2) Rel Index Troponin I C-Reactive Protein Total Protein 5.6 L Albumin 2.9 L Globulin 2.7 Albumin/Globulin Ratio 1.1 Urine Color Urine Appearance Urine pH Ur Specific [place] Urine Protein Urine Glucose (UA) Urine Ketones Urine Occult Blood Urine Nitrate Urine Bilirubin Ur Bilirubin Confirm Urine Urobilinogen Ur Leukocyte Esterase Urine RBC Urine WBC Urine Bacteria Ur Culture Indicated? SARS-CoV-2 (PCR) [facility] Medical History Hyperlipidemia Hypertension Peripheral vascular disease Scleroderma Social History marital status: details: Spouse is retired physician household members: spouse Smoking Status: Never smoker alcohol intake: former Assessment & Plan Assessment and plan (1) Septic olecranon bursitis of left elbow: Problem details: Septic a left olecranon bursitis. There is a small poke hole tiny wound over the olecranon bursa and induration erythema. More anteriorly and along the elbow joint there is no swelling or tenderness. Patient does have some decreased range of motion due to pain around the bursa , but no signs of septic arthritis. Per report there was an I&D yesterday. It appears this was a small incision and has already mostly closed on my inspection today. I have discussed options with the patient. In general, I and D and packing with antibiotic is used for a draining septic bursitis. If this fails to resolve the symptoms then formal operative debridement and bursectomy would be indicated. Decision for I and D in the emergency room while she continues her septic workup. The area was anesthetized with lidocaine and 1.5 cm incision was made allowing expression of a scant amount of purulence as well as about 5 more mL of thin cloudy fluid. This was then irrigated using flush syringes and then packed with half-inch iodoform gauze. And a new wrap was placed. She will have daily dressing changes and packing changes. And antibiotics. If the appearance fails to improve or worsens, then would do formal operative bursectomy and debridement under anesthesia. She was growing strep from her previous culture. Agree with appropriate IV antibiotics. Blood cultures are pending. Inflammatory labs CRP and ESR have been ordered. Her white count does appear likely elevated from baseline is 12 today when previous levels have been 5 or 3. Would make her NPO at midnight tonight for wound check in the morning. Status: Acute Plan Status post I&D septic olecranon bursitis. Previous culture growing strep. Updated cultures obtained today. Patient's white cell count has dramatically improved with IV antibiotics overnight. Still has swelling and induration around the bursa and proximal extensor forearm. And some generalized swelling into the hand. Recommend more strict elevation above the heart level. Will try to break up an IV pole and sling system to help with this. She does have some rings on the left hand she states these cannot come off. Swelling does not appear critical at this point but I do want to get it down so that there is a chance of either getting the rings off or keeping this well and a control enough not to get into a situation where these need to be cut off. Recommend continue antibiotics. Daily packing with change. A small piece of half-inch a quarter-inch iodoform gauze to allow continued drainage. No surgery planned today. May have a diet. Requires continued inpatient management for IV antibiotics. Once showing adequate improvement bridge to appropriate oral antibiotics. Time Spent With Patient Critical Care time: I spent a total of [] minutes of critical care time on this patient's care today; this time is exclusive of procedural time. Quality VTE Deep Vein Thrombosis/Pulmonary Embolism Present on Admission: No
[2021-06-23] MEDS: FAMOTIDINE 20 MG TABLET PO (09:37)
[2021-06-23] MEDS: metroNIDAZOLE 500 MG TABLET PO ×3 (09:37→21:56)
[2021-06-23] MEDS: LACTOBACILLUS ACIDOPHILUS TABLET 1 EACH PO ×3 (09:37→17:31)
--- NOTE | 2021-06-23 11:07 | PT.IIE ---
Current Diagnoses Peripheral vascular disease, unspecified (06/22/21) Other infective bursitis, left elbow (06/22/21) Medical History (Last Reviewed 06/22/21 @ 12:23 by Isela Basilio MD) Hyperlipidemia Hypertension Peripheral vascular disease Scleroderma Physical Therapy Inpatient Evaluation/Re-Eval M1 PT/OT-IP Prior Functional Status Start: 06/23/21 08:30 Freq: NEEDED Status: Active Protocol: Document 06/23/21 10:32 AMB (Rec: 06/23/21 11:06 AMB [id number]) Medical Review Prior Functional Status Medical History Reviewed Yes Mobility and Gait Pt has SPC, FWW, and manual wheelchair at home, uses w/c and walker when home alone, uses SPC on stairs and when is home Social History Household Members spouse Living Arrangements House Number of Floors (Floors) Two Floors Number of Stairs To Enter/Railing? 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 M2 PT-IP Current Condition Start: 06/23/21 08:30 Freq: NEEDED Status: Active Protocol: Document 06/23/21 10:32 AMB (Rec: 06/23/21 11:06 AMB [id number]) Physical Therapy Current Condition Current Condition Evaluation Date 06/23/21 Treatment Diagnosis L elbow I&D, weakness, history BKA Onset Date 06/22/21 M3 PT-IP Subjective Start: 06/23/21 08:30 Freq: NEEDED Status: Active Protocol: Document 06/23/21 10:32 AMB (Rec: 06/23/21 11:06 AMB [id number]) Subjective Physical Therapy Visit Type Type Initial Evaluation Visit Start Time 09:45 Visit Stop Time 10:15 Total Visit Minutes 30 Physical Therapy Visit Comments Patient Comments Willing to get up with PT, sitting at edge of bed Therapy Pain Assessment Pain When Pain Assessed At Rest M4 PT-IP Mobility and Gait Start: 06/23/21 08:30 Freq: NEEDED Status: Active Protocol: Document 06/23/21 10:32 AMB (Rec: 06/23/21 11:06 AMB [id number]) PT-Transfer Assessment Sit to and From Stand Sit to and from Stand Standby Assistance Equipment Transfer Assistive Device Front Wheeled Walker Transfers Transfer Destination Bed Transfer Technique Stand Step Pivot Transfer Ability Level of Assist Standby Assistance Comments Mobility Comments Elysia was able to independently don her prosthetic, despite continued L hand swelling. She was able to move from sit to stand with SBA with both a SPC and FWW. Gait Assessment Gait Gait Assistance Required: Contact Guard Assist Distance (Feet) 200 Assistive Devices Assistive Device Front Wheeled Walker Gait Deviations General Gait Pattern Antalgic,Decreased Stride Length,Lateral Trunk Lean Factors Limiting Gait Function Factors Limiting Gait Function Decreased Activity Tolerance, Decreased Strength,Poor Balance Comments Gait Comments Elysia was able to ambulate with her prosthetic on the R and shoe for her toes on the left. At baseline she states she could walk with a SPC in the left hand, and tried walking with the right, but felt off balance. She states she has a long history of dizziness. She needed a FWW to feel safe to ambulate today . 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 Stair Climbing Assessment Evaluation Level of Assist On Stairs Contact Guard Assistance Devices Stair Climbing Assistive Devices Left Railing,Right Railing Technique/Endurance Stair Climbing Direction Ascend and Descend Stair Climbing Technique Step to Step Number of Steps Climbed 3 Query Text: Stair Climbing Set # Repetitions (reps) 1 Comments Stair Climbing Comments Let pt hold onto right railing to ascend (as she will be able to do at home). Leading with L foot for step to ascent . Pt held on to right railing to descend as well, which she will not be able to do at home. Discussed using cane, , waiting a few days for swelling to decrease so she can be safe descending stairs. PT-Balance Assessment Sitting Balance and Reactions Static Sitting Balance Ability Normal Dynamic Sitting Balance Ability Normal Standing Balance and Reactions Static Standing Balance Ability Fair Dynamic Standing Balance Ability Fair M5 PT-IP Objective Assessments Start: 06/23/21 08:30 Freq: NEEDED Status: Active Protocol: Document 06/23/21 10:32 AMB (Rec: 06/23/21 11:06 AMB [id number]) Strength Upper Extremity Strength Assessment Left Impaired M7 PT-IP Assessment and Plan Start: 06/23/21 08:30 Freq: NEEDED Status: Active Protocol: Document 06/23/21 10:32 AMB (Rec: 06/23/21 11:06 AMB [id number]) PT Summary Assessment and Plan Potential Rehabilitation Potential Good Status of Condition at Evaluation Evolving Summary Impairments Pain,ROM,Strength,Balance, Transfers,Gait,Activity Tolerance Assessment Summary Elysia had a left elbow I&D in the context of 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 The biggest mobility concern is stairs considering that she has two flights of stairs to enter her home and that there is only one railing. Currently the swelling in her hand makes it difficult to millinery department manager and she will need to use the right hand on a railing. Elysia was able to independently don her prosthetic and walk with a walker. She states she will be able to use a manual w/c at home when her is at work. She plans to have him bring a stool as he has a lifted trunk and getting into it will be difficult given her limited use of her left arm at this time. She is going to have family support with her sisters, so given that and that she was able to ascend and descend 3 stairs with step to gait, she should be able to go home with family assistance, as long as she uses a cane or her to descend the stairs, or waits until the left arm is more functional to hold onto her left railing to descend her stairs. Goals Bed Mobility Goal Independent,Standby Assistance Transfer Goal Independent Gait Goal Standby Assistance Gait Distance 200 Days to Meet Goals 3 Frequency of Treatment Frequency Of Treatment Once a Day Treatment Plan Physical Therapy Treatment Plan Bed Mobility Training,Transfer Training,Gait Training, Therapeutic Exercise,Balance Retraining Other Recommendations and Next Treatment Stairs Focus Recommendations To Nursing Amount of Assist Needed Standby Assistance,1 Person Assist Discharge Recommendations PT Discharge Recommendations Home with 18/02 Assist Available Transportation Needs at Discharge Private Vehicle
--- NOTE | 2021-06-23 11:30 | OT.IPNOTE ---
Checked on pt for OT eval and pt's present in the room and both feel that there are no OT needs as pt's sisters are coming to town to be able to assist the pt. Pt states will just take sponge bathes for now as prior got into the bath tub to bathe by lowering herself with her arms down to the tub. Therefore to double check on pt tomorrow for OT needs, otherwise plan on possibly discharging OT Eval orders tomorrow if pt still continues to have no OT needs.
--- NOTE | 2021-06-23 12:09 | CM.DANOTE ---
DCP Assessment: Patient is a 70 yr old female with Lt elbow Sepsis- patient had two I&D procedures and is on IV ABX- Cultures pending but according to MD should be DC on PO abx. CM met with patient at the bedside and explained role. Patient was alert and oriented x4 patients Robert was in the room during CM meeting. Patient currently lives in a two story home with her and states she is Independent with all ADLS and drives at her baseline. PT and OT recommend home with assistance- Patients states her will be home with her to help her recover and she wants to go home. I: [email or web address] and medicare Plan: DC home with her no identified DC planning needs noted at this time. CM department will continue to follow to assist with any new DC planning needs that may arise- follow cultures to make sure patient will be DC on oral ABX instead of IV, Shelley Barrow RN Case Manger Discharge Planning/Care Management CM Discharge Assessment Start: 06/23/21 12:07 Freq: Status: Active Protocol: Document 06/23/21 12:07 (Rec: 06/23/21 12:09 [id number]) Discharge Planning Assessment Assigned Electrical Appliance Preparer Shelley Barrow RNday care attendant DPOA/Assigned Designee Name Robert Stark () Contact Information [phone] Advance Directives? No History Provided By Patient Has Patient been admitted in last 30 No days? Prior Living Arrangements House Household Members spouse Type of transporation used prior to Drives own vehicle admit Independent with ADL's Yes Is patient alert and oriented? Yes Caregiver for Another No Barriers to Discharge No Discharge Plan Home Referrals Initiated None needed Whiteboard Updated in Patient Room with Yes name and ext. # of Electrical Appliance Preparer Review Status In Process Next Review Type Continued Stay Review
--- NOTE | 2021-06-23 16:11 | P.PN_ITS ---
Subjective Subjective Interval history: THIS IS A PLEASANT 70-YEAR-OLD FEMALE WITH HISTORY OF CREST SYNDROME SHE IS BEING TREATED FOR URINARY TRACT INFECTION WELL LEFT ELBOW BURSITIS/ ABSCESS BUT BOTH THE URINE AND ABSCESS DRAINAGE GROWING THE SAME SPECIES OF BACTERIA TODAY SHE WOULD LIKE TO GO HOME SOON POSSIBLE SHE STATED SHE DENIES ANY CHEST PAIN. NO SHORTNESS OF BREATH NO FEVER OR CHILLS REPORTED CONTINUE TO HAVE SOME SWELLING TO THE LEFT ELBOW NO OTHER COMPLAINTS Exam Vital Signs (past 8 hours): - 06/23/21 11:46 06/23/21 13:12 Pulse Rate 68 75 Respiratory Rate 20 16 Blood Pressure 124/55 L Pulse Oximetry 97 94 Oxygen Delivery Method Room Air Oxygen Flow Rate 0 Narrative Exam Narrative: NO ACUTE DISTRESS.? PATIENT IS ALERT ORIENTED X3. VITAL SIGNS STABLE HEAD ATRAUMATIC NORMOCEPHALIC NECK : SUPPLE WITHOUT ADENOPATHY NO CAROTID BRUITS EYE:? EOMI, PERRLA, NORMAL CONJUNCTIVA; NO JAUNDICE CHEST:? REGULAR RATE.? ? NO RUBS.? PMI IS NON DISPLACED.? NO MURMURS; NORMAL S1- S2 PULMONARY:? DECREASED BS OVER THE BASES. ? NO CRACKLES NOTED; NO INCREASED DULLNESS TO PERCUSSION ABDOMEN:? SOFT.? NONTENDER.? NONDISTENDED.? BOWEL SOUNDS ARE PRESENT IN ALL 4 QUADRANTS.? NO MASS. EXTREMITIES: ? TOES MISSING ON THE LEFT FOOT.? RIGHT BKA.NO EDEMA..? NO CYANOSIS CLUBBING NOTED. NEURO:? CRANIAL NERVES 2-12 GROSSLY INTACT. NO FOCAL NEUROLOGICAL DEFICIT NOTED.? POOR HEARING MSK:? NORMAL RANGE OF MOTION FOR AGE.? NO JOINT EFFUSION. SKIN:? ? GOOD? TURGOR.; NO RASHES. OPEN SURGICAL INCISION ON THE LEFT ELBOW. DRESSING IN PLACE. PURULENT DRAINAGE. :? NORMAL EXTERNAL GENITALIA. PSYCH :? APPROPRIATE MOOD AND AFFECT.? ALERT AWAKE ORIENTED X3 Objective Labs Result Diagrams: 06/23/21 06:15 06/23/21 06:15 Labs: Laboratory Results - last 24 hr 06/22/21 06/23/21 06/23/21 22:35 06:15 06:15 WBC 6.5 RBC 3.33 L Hgb 8.6 L Hct 26.1 L MCV 78.3 L MCH 25.9 L MCHC 33.1 RDW 16.5 H Plt Count 59 L Neut % (Auto) 89.6 H Lymph % (Auto) 4.2 L [place] % (Auto) 5.5 Eos % (Auto) 0.6 L Baso % (Auto) 0.1 Neut # (Auto) 5800 Lymph # (Auto) 300 L [place] # (Auto) 400 Eos # (Auto) 0 Baso # (Auto) 0 Sodium 130 L 129 L Potassium 3.9 Chloride 102 Carbon Dioxide 19 L BUN 19 H Creatinine 0.94 Estimated GFR 58.9 L BUN/Creatinine Ratio 20.2 Glucose 86 Calcium 8.4 Phosphorus 3.0 Magnesium 2.0 Iron TIBC % Saturation Transferrin Total Bilirubin 0.4 AST 48 H ALT 73 H Alkaline Phosphatase 178 H Total Protein 5.6 L Albumin 2.9 L Globulin 2.7 Albumin/Globulin Ratio 1.1 06/23/21 06:15 WBC RBC Hgb Hct MCV MCH MCHC RDW Plt Count Neut % (Auto) Lymph % (Auto) [place] % (Auto) Eos % (Auto) Baso % (Auto) Neut # (Auto) Lymph # (Auto) [place] # (Auto) Eos # (Auto) Baso # (Auto) Sodium Potassium Chloride Carbon Dioxide BUN Creatinine Estimated GFR BUN/Creatinine Ratio Glucose Calcium Phosphorus Magnesium Iron < 10 L TIBC 223 L % Saturation 4 L Transferrin 149 L Total Bilirubin AST ALT Alkaline Phosphatase Total Protein Albumin Globulin Albumin/Globulin Ratio PFSH Medical History Hyperlipidemia Hypertension Peripheral vascular disease Scleroderma Social History marital status: details: Spouse is retired physician household members: spouse Smoking Status: Never smoker alcohol intake: former Assessment & Plan Assessment & Plan narrative: ?PROBLEM LIST ?SEPTIC BURSITIS ON THE LEFT ELBOW ?POSSIBLE SEPSIS.? PRESENT ON ARRIVAL ?URINARY TRACT INFECTION VERSUS? POSSIBLE ACUTE PYELONEPHRITIS.? BLOOD CULTURES ?LEUKOCYTOSIS. ? HYPONATREMIA.? CAUSE IS UNCLEAR.? NO HISTORY ALCOHOL ABUSE ?ANEMIA.? LIKELY OF CHRONIC DISEASE.? CHECK VITAMIN-D LEVEL ?THROMBOCYTOPENIA.? CAUSE IS UNCLEAR ?ACUTE KIDNEY INJURY.? 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 /SCLERODERMA PER HISTORY ?HISTORY OF A RIGHT BKA ?PLAN 06/23 ABSCESS AND URINE CULTURE GROWING STREPTOCOCCUS SPECIES CONTINUE CURRENT ANTIBIOTICS FOR NOW PATIENT IS ON CEFEPIME AND FLAGYL ASSISTANCE FROM ORTHOPEDIC SURGERY GREATLY APPRECIATED WILL AWAIT CLEARANCE FROM THE SURGICAL TEAM PRIOR TO DISCHARGE PATIENT MAY NEED ADDITIONAL I AND D WILL INCREASE SODIUM TABLET TO BE AD TO IMPROVED SODIUM LEVEL MONITOR SKIN CLOSELY FOR ANY SIGN OF BREAKDOWN DUE TO LIMITED MOBILITY MAINTAIN ASPIRATION PRECAUTION WELL I SPOKE TO PATIENT'S AT BEDSIDE AND QUESTIONS/CONCERNS ADDRESSED TO EVERYBODY IN THE ROOM SATISFACTION AND UNDERSTANDING PATIENT HAS A GOOD SUPPORT SYSTEM AT HOME, COULD BE DISCHARGED FROM HEALTH ONLY 06/22 ? IN REGARD TO THE ELBOW, CULTURE FROM THE ER GROWING STREPTOCOCCUS ?WILL CONTINUE CEFEPIME AND FLAGYL FOR NOW ?NO INDICATION FOR VANCOMYCIN ?SIGNIFICANT PYURIA ALSO APPRECIATED ? CEFEPIME? SHOULD PROVIDE AMPLE COVERAGE FOR NOW ?WILL CONSIDER DEESCALATE ANTIBIOTIC THERAPY IN THE? NEXT 24-48 HOURS ?IF NO COMPLICATION ARISES, SHE MIGHT BE ABLE TO BE DISCHARGED ON ORAL ANTIBIOTICS ?WE WILL FOLLOW LABS CLOSELY ?FOLLOW CULTURES CLOSELY WELL ?GI AND IF HE RELAXES ORDERED ?MOBILE ASSESSMENT TOLERATED ?PHYSICAL THERAPY AND OCCUPATIONAL THERAPY TO EVALUATE AND TREAT INDICATED ?ADDITIONAL? MANAGEMENT PER CLINICAL COURSE Time Spent With Patient Critical Care time: I spent a total of [] minutes of critical care time on this patient's care tod ay; this time is exclusive of procedural time. Quality VTE Deep Vein Thrombosis/Pulmonary Embolism Present on Admission: No
[2021-06-23] MEDS: SENNOSIDES 8.6 MG TABLET 17.2 MG PO (21:44)
[2021-06-23] MEDS: METOCLOPRAMIDE HCL 5 MG TABLET PO (21:46)
[2021-06-23] MEDS: ACETAMINOPHEN 325 MG TABLET 650 MG PO (23:25)
[2021-06-24] VITALS (13 sets, daily range): BP systolic 121–168; BP diastolic 56–81; PULSE 71–94; RESP 16–22; TEMP 36.4–37.4; O2SAT 93–98
[2021-06-24] MEDS: CEFEPIME 1 GM in SODIUM CHLORIDE 0.9% 100 ML 200 ML IV ×2 (05:04→18:05)
[2021-06-24] MEDS: SODIUM CHLORIDE 0.9% 1,000 ML 70 ML IV (05:05)
[2021-06-24 05:49] LABS: Add Manual Diff / Slide Review NO; Basophils Absolute Auto 0 /uL (0-100); Basophils Percent Auto 0.1 % (0-2); Eosinophils Absolute Auto 100 /uL (0-450); Eosinophils Percent Auto 2.5 % (2-4); Hematocrit 25.9 % (36-46); Hemoglobin 8.6 g/dL (12.0-16.0); Lymphocytes Absolute Auto 400 /uL (1100-4500); Lymphocytes Percent Auto 7.7 % (25-40); Mean Corpuscular HGB Conc 33.4 % (30-36); Mean Corpuscular Hemoglobin 26.2 PG (26-34); Mean Corpuscular Volume 78.6 fL (80-100); Monocytes Absolute Auto 300 /uL (0-900); Monocytes Percent Auto 6.3 % (3-14); Neutrophils Absolute Auto 3800 /uL (1500-7000); Neutrophils Percent Auto 83.4 % (50-75); Platelet Count 61 X10^3/uL (150-400); Red Blood Cell Count 3.29 X10^6/uL (4.0-5.2); Red Cell Distribution Width 16.3 % (11.6-14.8); White Blood Cell Count 4.6 X10^3/uL (4.5-11.0)
[2021-06-24 05:58] LABS: Alanine Aminotransferase 60 IU/L (<35); Albumin 2.9 g/dL (3.5-5.0); Alkaline Phosphatase 176 U/L (38-126); Aspartate Aminotransferase 38 IU/L (14-36); BUN Creatinine Ratio 21.8 (6-22); Bilirubin Total 0.2 mg/dL (0.2-1.3); Blood Urea Nitrogen 19 mg/dL (7-17); Calcium 8.5 mg/dL (8.4-10.2); Carbon Dioxide 18 mmol/L (22-32); Chloride 106 mmol/L (98-107); Estimated Glomerular Filt Rate > 60.0 mL/min (>60); Globulin 2.8 g/dL (1.7-4.1); Glucose 126 mg/dL (80-110); HEMOLYSIS < 15 (0-50); Magnesium 1.8 mg/dL (1.6-2.3); Phosphorous 2.9 mg/dL (2.8-4.1); Potassium 3.8 mmol/L (3.4-5.1); Sodium 131 mmol/L (137-145); Total Protein 5.7 g/dL (6.3-8.2)
[2021-06-24] MEDS: ALBUTEROL/IPRATROPIUM 3 ML AMPUL INH ×3 (07:45→21:05)
[2021-06-24] MEDS: BUDESONIDE 0.5 MG/2 ML NEB INH ×2 (07:45→21:05)
--- NOTE | 2021-06-24 09:35 | OT.IPNOTE ---
Touched base with pt and pt states has no OT needs and therefore discharge OT eval orders.
[2021-06-24] MEDS: PREGABALIN 50 MG CAPSULE 200 MG PO ×2 (09:41→20:27)
[2021-06-24] MEDS: FAMOTIDINE 20 MG TABLET PO (09:41)
[2021-06-24] MEDS: metroNIDAZOLE 500 MG TABLET PO ×3 (09:42→20:25)
--- NOTE | 2021-06-24 11:18 | PM.PNPO.1 ---
Subjective Subjective Date Patient Seen: 06/24/21 Time Patient Seen: 11:19 Interval history: Patient is complaining of mild left elbow pain. She denies any fevers, chills, night sweats. Overall she is feeling much improved with her IV antibiotics and left elbow I and D. Exam Vital Signs (past 8 hours): - 06/24/21 04:00 06/24/21 07:46 06/24/21 07:50 Temperature 97.6 F 99.0 F Pulse Rate 71 84 74 Respiratory Rate 16 20 18 Blood Pressure 126/62 134/58 L Pulse Oximetry 93 94 94 06/24/21 07:53 Temperature Pulse Rate 94 H Respiratory Rate 22 Blood Pressure Pulse Oximetry Oxygen Delivery Method Room Air Oxygen Flow Rate 0 Narrative Exam Narrative: Pleasant 70-year-old female, resting comfortably in bed with her arm in a trapeze to reduce swelling. Left elbow demonstrates mild, resolving erythema. The packing was changed today. Distally she has edema in her but is neurovascularly intact and able to wiggle her fingers. Objective Labs Result Diagrams: 06/24/21 05:31 06/24/21 05:31 Labs: Laboratory Results - last 24 hr 06/24/21 06/24/21 05:31 05:31 WBC 4.6 RBC 3.29 L Hgb 8.6 L Hct 25.9 L MCV 78.6 L MCH 26.2 MCHC 33.4 RDW 16.3 H Plt Count 61 L Neut % (Auto) 83.4 H Lymph % (Auto) 7.7 L [place] % (Auto) 6.3 Eos % (Auto) 2.5 Baso % (Auto) 0.1 Neut # (Auto) 3800 Lymph # (Auto) 400 L [place] # (Auto) 300 Eos # (Auto) 100 Baso # (Auto) 0 Sodium 131 L Potassium 3.8 Chloride 106 Carbon Dioxide 18 L BUN 19 H Creatinine 0.87 Estimated GFR > 60.0 BUN/Creatinine Ratio 21.8 Glucose 126 H Calcium 8.5 Phosphorus 2.9 Magnesium 1.8 Total Bilirubin 0.2 AST 38 H ALT 60 H Alkaline Phosphatase 176 H Total Protein 5.7 L Albumin 2.9 L Globulin 2.8 Albumin/Globulin Ratio 1.0 PFSH Medical History Hyperlipidemia Hypertension Peripheral vascular disease Scleroderma Social History marital status: details: Spouse is retired physician household members: spouse Smoking Status: Never smoker alcohol intake: former Assessment & Plan Post-op Postoperative Procedures: Status post left elbow I and D in the emergency room Postoperative status: doing well Postoperative plan narrative: (1) Septic olecranon bursitis of left elbow: Status post I&D septic olecranon bursitis. Previous culture growing strep. Updated cultures obtained-still pending. Patient's white cell count has dramatically improved with IV antibiotics. Still has swelling and mild erythema around the bursa and proximal extensor forearm. And some generalized swelling into the hand. Recommend more strict elevation above the heart level. Will try to break up an IV pole and sling system to help with this. -Recommend continue antibiotics. -Daily packing with change, until packing is no longer able to be inserted. A small piece of half-inch a quarter-inch iodoform gauze to allow continued drainage. - No surgery planned. -Requires continued inpatient management for IV antibiotics. Once showing adequate improvement bridge to appropriate oral antibiotics-pending final cultures from elbow and UA. Quality VTE Deep Vein Thrombosis/Pulmonary Embolism Present on Admission: No
--- NOTE | 2021-06-24 14:05 | PT-IP ANOTE ---
Attempted to see pt at 14:05, pt refused due to increased fatigue today. Will attempt again tomorrow.
--- NOTE | 2021-06-24 15:52 | P.DS_ITS ---
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 SHE DOES HAVE A HISTORY OF THE ED, HYPERLIPIDEMIA . . THE PATIENT PRESENTED TO THE HOSPITAL ON 06/21 WITH A LEFT ELBOW PAIN WHICH HAS BEEN ONGOING FOR A FEW DAYS PRIOR TO ARRIVAL THE ELBOW WAS I&Ded BY THE ER ATTENDING AND PATIENT WAS SENT HOME. SHE RETURNED TODAY WITH INCREASING PAIN TO THE AREA. SHE WAS SEEN BY ORTHOPEDIC SURGERY WHICH AGAIN PERFORMED A 2ND I&D.. SHE WAS TREATED WITH ANTIBIOTICS. DOXYCYCLINE WAS GIVEN. TODAY SHE RECEIVE VANCOMYCIN AND ROCEPHIN. SHE HAD NO OTHER COMPLAINT. REVIEW OF SYSTEMS NEGATIVE UNLESS NOTED ABOVE IN HPI Discharge Providers Provider Date of admission: 06/22/21 13:54 Discharge Date: 06/24/21 Primary care physician: Daron Pinto MD Consults: 06/22/21 15:01 Consult to Discharge Planning Routine Comment: Consult to Occupational Therapy Evaluate & Treat Comment: Physician Instructions: Evaluate and treat Consult to Physical Therapy Evaluate & Treat Comment: Physician Instructions: Evaluate and Treat 06/22/21 20:31 Consult to Respiratory Therapy Evaluate & Treat Comment: Physician Instructions: Evaluate and treat Discharge provider: Elizabeth Reyna, Summary Hospital Course Discharge Diagnosis: ?SEPTIC BURSITIS ON THE LEFT ELBOW. STREPTOCOCCUS ON CULTURE ?POSSIBLE SEPSIS.? PRESENT ON ARRIVAL ?URINARY TRACT INFECTION VERSUS? POSSIBLE ACUTE PYELONEPHRITIS.? STREPTOCOCCUS SPECIES GREW ON CULTURE ?LEUKOCYTOSIS. RESOLVED ? HYPONATREMIA.? CAUSE IS UNCLEAR.? NO HISTORY ALCOHOL ABUSE ?ANEMIA.? LIKELY OF CHRONIC DISEASE.? CHECK VITAMIN-D LEVEL ?THROMBOCYTOPENIA.? CAUSE IS UNCLEAR ?ACUTE KIDNEY INJURY.? 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 PATIENT WAS TREATED FOR BURSITIS ON THE LEFT ELBOW. TWO CULTURES TAKE IN A DIFFERENT TIME AT THE SITE . GREW STREPTOCOCCUS SHE WILL BE DISCHARGED ON AUGMENTIN STREPTOCOCCUS SPECIES SUSCEPTIBLE TO PENICILLIN. SHE WILL NEED TO FOLLOW-UP WITH ORTHOPEDIC SURGERY WITHIN 10-14 DAYS. DAILY DRESSING CHANGES WILL BE CONTINUED PER SURGICAL TEAM RECOMMENDATIONS PATIENT TO KEEP THE AREA DRY AND CLEAN AT ALL TIMES ADDITIONAL MANAGEMENT PER CLINICAL COURSE Status at Discharge Cognitive/behavioral status at discharge: oriented and at baseline, confused Functional status at discharge: wheelchair bound Overall status at discharge: patient is back to baseline Time Spent with Patient Time spent: Greater than 30 minutes Exam Vital Signs (past 8 hours): - 06/24/21 07:53 06/24/21 08:00 06/24/21 11:45 Temperature 99.4 F Pulse Rate 94 H 77 Respiratory Rate 22 18 Blood Pressure 139/65 Pulse Oximetry 95 98 06/24/21 14:18 Temperature Pulse Rate 80 Respiratory Rate 18 Blood Pressure Pulse Oximetry Oxygen Delivery Method Room Air Oxygen Flow Rate 0 Narrative Exam Narrative: NO ACUTE DISTRESS.? PATIENT IS ALERT ORIENTED X3. VITAL SIGNS STABLE HEAD ATRAUMATIC NORMOCEPHALIC NECK : SUPPLE WITHOUT ADENOPATHY NO CAROTID BRUITS EYE:? EOMI, PERRLA, NORMAL CONJUNCTIVA; NO JAUNDICE CHEST:? REGULAR RATE.? ? NO RUBS.? PMI IS NON DISPLACED.? NO MURMURS; NORMAL S1- S2 PULMONARY:? DECREASED BS OVER THE BASES. ? NO CRACKLES NOTED; NO INCREASED DULLNESS TO PERCUSSION ABDOMEN:? SOFT.? NONTENDER.? NONDISTENDED.? BOWEL SOUNDS ARE PRESENT IN ALL 4 QUADRANTS.? NO MASS. EXTREMITIES: ? TOES MISSING ON THE LEFT FOOT.? RIGHT BKA.NO EDEMA..? NO CYANOSIS CLUBBING NOTED. NEURO:? CRANIAL NERVES 2-12 GROSSLY INTACT. NO FOCAL NEUROLOGICAL DEFICIT NOTED.? POOR HEARING MSK:? NORMAL RANGE OF MOTION FOR AGE.? NO JOINT EFFUSION. SKIN:? ? GOOD? TURGOR.; NO RASHES. ? OPEN SURGICAL INCISION ON THE LEFT ELBOW.? DRESSING IN PLACE.? PURULENT DRAINAGE. :? NORMAL EXTERNAL GENITALIA. PSYCH :? APPROPRIATE MOOD AND AFFECT.? ALERT AWAKE ORIENTED X3 Objective Labs Result Diagrams: 06/24/21 05:31 06/24/21 05:31 Labs: Laboratory Results - last 24 hr 06/24/21 06/24/21 05:31 05:31 WBC 4.6 RBC 3.29 L Hgb 8.6 L Hct 25.9 L MCV 78.6 L MCH 26.2 MCHC 33.4 RDW 16.3 H Plt Count 61 L Neut % (Auto) 83.4 H Lymph % (Auto) 7.7 L [place] % (Auto) 6.3 Eos % (Auto) 2.5 Baso % (Auto) 0.1 Neut # (Auto) 3800 Lymph # (Auto) 400 L [place] # (Auto) 300 Eos # (Auto) 100 Baso # (Auto) 0 Sodium 131 L Potassium 3.8 Chloride 106 Carbon Dioxide 18 L BUN 19 H Creatinine 0.87 Estimated GFR > 60.0 BUN/Creatinine Ratio 21.8 Glucose 126 H Calcium 8.5 Phosphorus 2.9 Magnesium 1.8 Total Bilirubin 0.2 AST 38 H ALT 60 H Alkaline Phosphatase 176 H Total Protein 5.7 L Albumin 2.9 L Globulin 2.8 Albumin/Globulin Ratio 1.0 PFSH Medical History Hyperlipidemia Hypertension Peripheral vascular disease Scleroderma Social History marital status: details: Spouse is retired physician household members: spouse Smoking Status: Never smoker alcohol intake: former Discharge Plan Discharge Plan Patient Disposition: Home Discharge orders & Medications Prescriptions: New Bacid 1 billion cell- 250 mg Tablet 1 ea PO TIDWM Qty: 90 0RF amoxicillin-pot clavulanate [Augmentin] 875-125 mg tablet 1 tab PO BID Qty: 20 0RF azithromycin 500 mg tablet 500 mg PO DAILY 10 Days 0RF Continued sertraline 25 mg tablet 25 mg PO BEDTIME 0RF Rx Instructions: take 3 tablets at bedtime. Advair Diskus 500-50 mcg/dose blister with device 1 inhalation INHALATION BID 0RF omeprazole 20 mg capsule,delayed release(DR/EC) 20 mg PO BEDTIME 0RF Combivent Respimat 20-100 mcg/actuation mist 1 puff INHALATION Q4HR 0RF atorvastatin [Lipitor] 80 mg tablet 80 mg PO DAILY 0RF olmesartan [Benicar] 40 mg tablet 40 mg PO BEDTIME 0RF montelukast [Singulair] 10 mg tablet 10 mg PO QPM 0RF metoclopramide HCl [Reglan] 5 mg tablet 5 mg PO BEDTIME 0RF Lyrica 200 mg capsule 200 mg PO BID 0RF fluticasone propion-salmeterol [Advair Diskus] 250 MCG/50 MCG blister with device 1 ea inhalation BID Qty: 0 0RF aspirin 81 MG tablet,delayed release (DR/EC) 81 mg PO QDAY Qty: 0 0RF ibuprofen 200 MG tablet 400 mg PO PRN Qty: 0 0RF amlodipine 5 mg tablet 5 mg PO BEDTIME 0RF melatonin 5 mg PO BEDTIME 0RF oxycodone 5 mg tablet 5 mg PO Q6H PRN (Reason: pain) Qty: 10 0RF Discontinued doxycycline hyclate 100 mg capsule 100 mg PO BID Qty: 14 0RF Follow up/Referrals: Isela Basilio MD [Physician] - (10-14 days for visit) Daron Pinto MD [Primary Care Provider] - Diet/Activity/Treatments Diet: Low-fat and Low-cholesterol Activity: TOLERATED. AVOID SWIMMING IN STANDING WATER. OKAY TO SHOWER PRIOR TO DRESSING CHANGE Other treatments: -elevation above the heart level as needed for swelling. -complete antibiotics. -Daily packing with change, until packing is no longer able to be inserted. A small piece of half-inch a quarter-inch iodoform gauze to allow continued drainage. -follow-up with orthopedics in 10-14 days Skin/Wound/Dressing Care Report to your healthcare provider any signs of infection, such as:: chills, fever, night sweats, increased pain and unusual drainage Discharge Data Primary Care Provider: Daron Pinto Quality VTE Deep Vein Thrombosis/Pulmonary Embolism Present on Admission: No
[2021-06-24] MEDS: AMLODIPINE 5 MG TABLET PO (20:25)
[2021-06-24] MEDS: METOCLOPRAMIDE HCL 5 MG TABLET PO (20:25)
[2021-06-24] MEDS: SERTRALINE 50 MG TABLET 75 MG PO (20:25)
[2021-06-24] MEDS: MELATONIN 3 MG TABLET 6 MG PO (20:27)
[2021-06-24] MEDS: SENNOSIDES 8.6 MG TABLET 17.2 MG PO (20:29)
--- NOTE | 2021-06-25 01:45 | PC.NURSE ---
When giving 2100 medications for 06/24 patient dropped all her medications on the floor. Wasted lyrica with another nurse and pulled new medications.
[2021-06-25 03:00] VITALS: O2SAT 95
[2021-06-25] MEDS: ACETAMINOPHEN 325 MG TABLET 650 MG PO (03:07)
[2021-06-25 03:50] VITALS: BP 153/70; PULSE 94; RESP 18; TEMP 37.5; O2SAT 95
[2021-06-25 04:28] LABS: Add Manual Diff / Slide Review NO; Basophils Absolute Auto 0 /uL (0-100); Basophils Percent Auto 0.1 % (0-2); Eosinophils Absolute Auto 100 /uL (0-450); Eosinophils Percent Auto 2.2 % (2-4); Hematocrit 25.2 % (36-46); Hemoglobin 8.4 g/dL (12.0-16.0); Lymphocytes Absolute Auto 500 /uL (1100-4500); Mean Corpuscular HGB Conc 33.4 % (30-36); Mean Corpuscular Hemoglobin 26.1 PG (26-34); Mean Corpuscular Volume 78.2 fL (80-100); Monocytes Absolute Auto 400 /uL (0-900); Neutrophils Absolute Auto 3500 /uL (1500-7000); Neutrophils Percent Auto 77.7 % (50-75); Platelet Count 82 X10^3/uL (150-400); Red Blood Cell Count 3.22 X10^6/uL (4.0-5.2); Red Cell Distribution Width 16.6 % (11.6-14.8); White Blood Cell Count 4.5 X10^3/uL (4.5-11.0)
[2021-06-25 04:37] LABS: Alanine Aminotransferase 60 IU/L (<35); Albumin 3.2 g/dL (3.5-5.0); Albumin Globulin Ratio 1.1 (1.0-2.8); Alkaline Phosphatase 208 U/L (38-126); Aspartate Aminotransferase 41 IU/L (14-36); Bilirubin Total 0.3 mg/dL (0.2-1.3); Blood Urea Nitrogen 14 mg/dL (7-17); Calcium 8.7 mg/dL (8.4-10.2); Carbon Dioxide 19 mmol/L (22-32); Chloride 107 mmol/L (98-107); Estimated Glomerular Filt Rate > 60.0 mL/min (>60); Glucose 87 mg/dL (80-110); HEMOLYSIS < 15 (0-50); Magnesium 1.8 mg/dL (1.6-2.3); Phosphorous 3.5 mg/dL (2.8-4.1); Sodium 135 mmol/L (137-145); Total Protein 6.2 g/dL (6.3-8.2)
[2021-06-25] MEDS: ALBUTEROL/IPRATROPIUM 3 ML AMPUL INH ×3 (06:12→13:11)
[2021-06-25 07:00] VITALS: O2SAT 97
[2021-06-25] MEDS: CEFEPIME 1 GM in SODIUM CHLORIDE 0.9% 100 ML 200 ML IV (07:04)
[2021-06-25 07:40] VITALS: BP 142/62; PULSE 77; RESP 19; TEMP 37.4; O2SAT 95
[2021-06-25] MEDS: FAMOTIDINE 20 MG TABLET PO (08:10)
[2021-06-25] MEDS: metroNIDAZOLE 500 MG TABLET PO (08:10)
[2021-06-25] MEDS: PREGABALIN 50 MG CAPSULE 200 MG PO (08:11)
[2021-06-25] MEDS: BUDESONIDE 0.5 MG/2 ML NEB INH (08:31)
[2021-06-25 08:35] VITALS: PULSE 79; RESP 16; O2SAT 98
--- NOTE | 2021-06-25 10:04 | PT.IPTN ---
Current Diagnoses Peripheral vascular disease, unspecified (06/22/21) Other infective bursitis, left elbow (06/22/21) Physical Therapy Treatment Note M2 PT-IP Current Condition Start: 06/23/21 08:30 Freq: NEEDED Status: Active Protocol: Document 06/25/21 10:04 DLM (Rec: 06/25/21 10:16 DL [id number]) Physical Therapy Current Condition Current Condition Evaluation Date 06/23/21 Treatment Diagnosis L elbow I&D, weakness, history BKA Onset Date 06/22/21 M3 PT-IP Subjective Start: 06/23/21 08:30 Freq: NEEDED Status: Active Protocol: Document 06/25/21 10:04 DLM (Rec: 06/25/21 10:16 DL [id number]) Subjective Physical Therapy Visit Type Type Treatment Note Visit Start Time 09:24 Visit Stop Time 10:04 Total Visit Minutes 40 Number of PONY RIDE ATTENDANT Visits 0 Physical Therapy Visit Comments Patient Comments she reports getting tired faster than baseline with activity, she feels she will have the help she needs at home but would like to resume home health nursing for her wounds Patient Goals go home with her sister to help Therapy Pain Assessment Pain When Pain Assessed During Mobility Pain Present Pain Present Pain Reported Location Left Elbow Intensity 4 Scale Used Numeric (0 - 10) Description Aching Pain Behaviors Guarding M4 PT-IP Mobility and Gait Start: 06/23/21 08:30 Freq: NEEDED Status: Active Protocol: Document 06/25/21 10:04 DLM (Rec: 06/25/21 10:16 DL [id number]) PT-Bed Mobility Assessment Supine to Sit Supine to Sit Independent Scooting Scooting to Edge of Bed Independent PT-Transfer Assessment Sit to and From Stand Sit to and from Stand Independent,Use of Upper Extremities Equipment Transfer Assistive Device Front Wheeled Walker Transfers Transfer Destination Bed Transfer Technique Stand Step Pivot Transfer Ability Level of Assist Standby Assistance Comments Mobility Comments She was independent donning her prosthesis on right and post-op shoe on left. She reports feeling safer with the FWW today than the cane. Gait Assessment Gait Gait Assistance Required: Standby Assistance Distance (Feet) 225 Assistive Devices Assistive Device Gait Belt,Front Wheeled Walker Orthotic/Prosthetic Devices or Brace: Yes Gait Deviations General Gait Pattern Decreased Stride Length,Wide Based Gait Factors Limiting Gait Function Factors Limiting Gait Function Decreased Activity Tolerance, Pain,Poor Balance Comments Gait Comments she demonstrates good safety awareness and is very motivated to increase her activity level. Stair Climbing Assessment Evaluation Level of Assist On Stairs Contact Guard Assistance, Minimal Assistance Devices Stair Climbing Assistive Devices Left Railing Technique/Endurance Stair Climbing Direction Ascend and Descend Stair Climbing Technique Step to Step Number of Steps Climbed 3 Stair Climbing Set # Repetitions (reps) 3 Comments Stair Climbing Comments hand held assist provided on right side since she did not have cane at this time, pt reports left elbow pain while holding rail but was able to use it functionally PT-Balance Assessment Sitting Balance and Reactions Static Sitting Balance Ability Normal Dynamic Sitting Balance Ability Normal Standing Balance and Reactions Static Standing Balance Ability Good Dynamic Standing Balance Ability Good Device Used FWW M5 PT-IP Objective Assessments Start: 06/23/21 08:30 Freq: NEEDED Status: Active Protocol: Document 06/23/21 10:32 AMB (Rec: 06/23/21 11:06 AMB [id number]) Strength Upper Extremity Strength Assessment Left Impaired M6 PT-IP Treatment Start: 06/23/21 08:30 Freq: NEEDED Status: Active Protocol: Document 06/25/21 10:04 DLM (Rec: 06/25/21 10:16 DLM [id number]) Physical Therapy Treatment Education Education Provided Safety Equipment Issued Equipment Type and Company pt has a fWW and wheelchair at home to use as needed Other Treatments Other Treatment Performed answered pt's questions about home safety issues, her Spouse was present at the start of this visit and he reports no concerns about home discharge at this time M7 PT-IP Assessment and Plan Start: 06/23/21 08:30 Freq: NEEDED Status: Active Protocol: Document 06/25/21 10:04 DLM (Rec: 06/25/21 10:16 DLM [id number]) PT Summary Assessment and Plan Summary Oleg is alert and resting in bed this visit. Her Spouse is present at the start of the visit but needed to return home to take care of things before possible discharge. Her Spouse reports no concerns about mobility for discharge home. Pt is progressing well with her mobility and gait. Her activity tolerance continues to be lower than baseline but she can ambulate functional distances with the FWW and prosthesis. She shows safe technique on the stairs this visit. Her left elbow pain and swelling interferes with the use of her left UE during mobility but she has been able to compensate for functional mobility this visit. Pt left sitting up in the recliner after activity this visit. She appears safe to discharge home when medically cleared with help from her Spouse and her Sister. Pt feels home health nursing for wound care would be helpful at discharge. Impairments Pain,ROM,Strength,Balance, Transfers,Gait,Activity Tolerance Progress Towards Goals Progressing Toward Goals Goals Bed Mobility Goal Independent Transfer Goal Independent Gait Goal Standby Assistance Gait Distance 200 Other Goals up and down 12 steps with rail and cane with CG/SBA Days to Meet Goals 3 Frequency of Treatment Frequency Of Treatment Once a Day Treatment Plan Physical Therapy Treatment Plan Bed Mobility Training,Transfer Training,Gait Training, Therapeutic Exercise,Balance Retraining,Discharge Planning, Neuromuscular Re-ed Other Recommendations and Next Treatment stair training Focus Precautions Other Precautions left elbow wound, right BK prosthetic, post-op shoe on left s/p toe amputations with slow healing wounds Recommendations To Nursing Amount of Assist Needed Standby Assistance,1 Person Assist Discharge Recommendations PT Discharge Recommendations Home with Assistance,Home Health Other Discharge Recommendations pt wants home health nursing to resume for wound care Transportation Needs at Discharge Private Vehicle
--- NOTE | 2021-06-25 10:48 | PM.PN.1 ---
Exam Vital Signs (past 8 hours): - 06/25/21 03:00 06/25/21 03:50 06/25/21 07:00 Temperature 99.5 F Pulse Rate 94 H Respiratory Rate 18 Blood Pressure 153/70 H Pulse Oximetry 95 95 97 06/25/21 07:40 06/25/21 08:35 Temperature 99.3 F Pulse Rate 77 79 Respiratory Rate 19 16 Blood Pressure 142/62 H Pulse Oximetry 95 98 Oxygen Delivery Method Room Air Oxygen Flow Rate 0 Objective Labs Result Diagrams: 06/25/21 04:07 06/25/21 04:07 Labs: Laboratory Results - last 24 hr 06/25/21 06/25/21 04:07 04:07 WBC 4.5 RBC 3.22 L Hgb 8.4 L Hct 25.2 L MCV 78.2 L MCH 26.1 MCHC 33.4 RDW 16.6 H Plt Count 82 L Neut % (Auto) 77.7 H Lymph % (Auto) 11.0 L [place] % (Auto) 9.0 Eos % (Auto) 2.2 Baso % (Auto) 0.1 Neut # (Auto) 3500 Lymph # (Auto) 500 L [place] # (Auto) 400 Eos # (Auto) 100 Baso # (Auto) 0 Sodium 135 L Potassium 4.0 Chloride 107 Carbon Dioxide 19 L BUN 14 Creatinine 0.61 Estimated GFR > 60.0 BUN/Creatinine Ratio 23.0 H Glucose 87 Calcium 8.7 Phosphorus 3.5 Magnesium 1.8 Total Bilirubin 0.3 AST 41 H ALT 60 H Alkaline Phosphatase 208 H Total Protein 6.2 L Albumin 3.2 L Globulin 3.0 Albumin/Globulin Ratio 1.1 PFSH Medical History Hyperlipidemia Hypertension Peripheral vascular disease Scleroderma Social History marital status: details: Spouse is retired physician household members: spouse Smoking Status: Never smoker alcohol intake: former Assessment & Plan Assessment & Plan narrative: S/p left elbow olecranon bursa I&D. Will discharge today on oral antibiotics. Patient is instructed to perform daily wick packing to keep wound open for 2-3 days to allow additional drainage to take place. Time Spent With Patient Critical Care time: I spent a total of [] minutes of critical care time on this patient's care today; this time is exclusive of procedural time. Quality VTE Deep Vein Thrombosis/Pulmonary Embolism Present on Admission: No
[2021-06-25 13:16] VITALS: RESP 16
--- NOTE | 2021-06-25 14:06 | PC.NURSE ---
Discharge Note Patient A&O, VSS, RA, no complaints of pain/discomfort. Discharge information reviewed with patient and along with dressing changes instructions. All questions/concerns addressed. 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 Dressing change supplies given to patient and along with written instructions. Paper prescriptions given to patient and . PIV Discontinued. All belongings packed and given to patient. Patient take down via wheelchair to POV.
--- NOTE | 2021-06-25 16:22 | CM.DPC ---
DCP Discharge Home Per Ortho MD, pt medically stable to d/c home today and no barriers to d/c and does not feel like HH needed at discharge. Per OT, pt was discharged from OT service as no current OT needs. Per PT, pt was able to ambulate well with walker at this time and recommending safe d/c home with spouse and sister assist. Pt requesting HH RN resumption for wound care. SW called [facility] and they confirm they have had pt on service but discharged in February due to improvements and not homebound status. Plan: Patient to d/c home via family POV and will need to follow up with outpt Ortho if she feels HH RN still needed as Ortho MD did not feel she was homebound and that HH not needed at this time. GEORGE Ramirez
== END 2021-06-25 13:25 | disposition home or self-care (01) | DRG 872 ==
LOC: ED 12:02 → AC 06-23 05:28
PROVIDERS: Orthopaedic Surgery Foot and Ankle Surgery; Admitting Provider Hospitalist; Emergency Provider Emergency Medicine; PCP Internal Medicine; Referring Provider Emergency Medicine; Visit Provider Hospitalist
DX: A41.9 Sepsis, unspecified organism (principal); N39.0 Urinary tract infection, site not specified; N17.9 Acute kidney failure, unspecified; E87.1 Hypo-osmolality and hyponatremia; M71.122 Other infective bursitis, left elbow; R65.20 Severe sepsis without septic shock; B95.4 Other streptococcus as the cause of diseases classified elsewhere; D69.6 Thrombocytopenia, unspecified; D64.89 Other specified anemias; E78.5 Hyperlipidemia, unspecified; I10 Essential (primary) hypertension; I73.9 Peripheral vascular disease, unspecified; Z20.822 Contact with and (suspected) exposure to COVID-19
CPT/HCPCS: 36415; 73070; 80053; 81001; 82550; 82962; 83540; 83550; 83605; 83735; 84100; 84295; 84484; 85025; 85651; 86140; 87040; 87070; 87075; 87077; 87086; 87147; 87205; 87635; 93005; 94640; 94760; 96365; 96366; 96367; 97116; 97162; 97530; 99284; C9803; A9270; J0692; J0696; J1644; J1650

== ENCOUNTER → 2021-07-25 13:14 | Outpatient (CLI) | payer BC, MEDICARE, OTHER, SELFPAY ==
[2021-06-22 15:43] VITALS: BMI 24.7
== END ==
PROVIDERS: PCP Internal Medicine; Referring Provider Internal Medicine; Visit Provider Family Medicine
DX: T87.89 Other complications of amputation stump (principal); L97.521 Non-pressure chronic ulcer of other part of left foot limited to breakdown of skin; I73.9 Peripheral vascular disease, unspecified; S51.002A Unspecified open wound of left elbow, initial encounter; M34.9 Systemic sclerosis, unspecified; Z89.511 Acquired absence of right leg below knee; Z89.412 Acquired absence of left great toe; Z89.422 Acquired absence of other left toe(s)
CPT/HCPCS: 11042; 87070; 87075; 87205; 99214

== ENCOUNTER → 2021-07-25 14:50 | Outpatient (CLI) | payer BC, MEDICARE, OTHER, SELFPAY ==
[2021-06-22 15:43] VITALS: BMI 24.7
--- NOTE | 2021-07-25 14:57 | DI.RAD.S_ITS ---
PROCEDURE: XR FOOT LT MIN 3V INDICATIONS: EVALUATION FOR OSTEOMYOLITIS TECHNIQUE: 3 views of the foot were acquired. COMPARISON: [facility], CR, XR FOOT LT MIN 3V, 03/20/2021, 15:23. FINDINGS: Bones: Postsurgical changes are seen from amputation of the 1st ray at the level of the 1st proximal phalangeal shaft. The surgical margin is intact. There has also been prior amputation of the 3rd ray at the level of the 3rd middle phalangeal shaft. The distal cortex again appears mildly irregular, although not significantly changed when compared to the radiographs from 03/20/2021. No acute fractures or dislocations. No suspicious bony lesions. Visualized osseous structures otherwise appear intact. There is generalized osteopenia. Soft tissues: No suspicious soft tissue calcification or soft tissue gas. IMPRESSION: Postsurgical changes are redemonstrated from partial amputation of the 1st and 3rd toes. Cortical irregularity at the distal tip of the 3rd middle phalangeal stump does not appear significantly changed when compared to the radiographs from 03/20/2021 and is therefore favored to represent chronic postsurgical changes rather than osteomyelitis, although correlation with clinical findings is recommended. Osseous structures otherwise appear intact. Dictated by: Toni Arevalo M.D. on 07/25/2021 at 15:28 Approved by: Toni Arevalo M.D. on 07/25/2021 at 15:33
--- NOTE | 2021-07-25 14:57 | DI.RAD.S_ITS ---
PROCEDURE: XR ELBOW LT 2V INDICATIONS: EVALUATION FOR OSTEOMYOLITIS TECHNIQUE: 2 views of the elbow were acquired. COMPARISON: [facility], CR, XR ELBOW LT 2V, 06/22/2021, 10:24. FINDINGS: Bones: No acute fractures or dislocations. No suspicious bony lesions. No focal cortical destruction. Soft tissues: No elbow joint effusion. No suspicious soft tissue calcifications. Previously seen soft tissue gas has resolved. Soft tissue edema surrounding the elbow has decreased when compared to the prior radiographs. IMPRESSION: No radiographic signs of osteomyelitis. If the symptoms persist or if there is continued clinical concern, consider cross sectional imaging such as MRI or CT for further assessment. Dictated by: Toni Arevalo M.D. on 07/25/2021 at 15:26 Approved by: Toni Arevalo M.D. on 07/25/2021 at 15:28
== END ==
PROVIDERS: PCP Internal Medicine; Referring Provider Family Medicine; Visit Provider Family Medicine
DX: S51.002A Unspecified open wound of left elbow, initial encounter (principal); L97.529 Non-pressure chronic ulcer of other part of left foot with unspecified severity
CPT/HCPCS: 73070; 73630; 87070; 87205

== ENCOUNTER → 2021-08-01 10:08 | Outpatient (CLI) | payer BC, MEDICARE, OTHER, SELFPAY ==
[2021-06-22 15:43] VITALS: BMI 24.7
== END ==
PROVIDERS: PCP Internal Medicine; Referring Provider Internal Medicine; Visit Provider Family Medicine
DX: S51.002A Unspecified open wound of left elbow, initial encounter (principal)
CPT/HCPCS: 97607

== ENCOUNTER → 2021-08-03 12:09 | Outpatient (CLI) | payer BC, MEDICARE, OTHER, SELFPAY ==
[2021-06-22 15:43] VITALS: BMI 24.7
== END ==
PROVIDERS: PCP Internal Medicine; Referring Provider Internal Medicine; Visit Provider Family Medicine
DX: I73.9 Peripheral vascular disease, unspecified (principal); L97.521 Non-pressure chronic ulcer of other part of left foot limited to breakdown of skin; S51.002A Unspecified open wound of left elbow, initial encounter; M34.9 Systemic sclerosis, unspecified; Z89.511 Acquired absence of right leg below knee; Z89.412 Acquired absence of left great toe; Z89.422 Acquired absence of other left toe(s)
CPT/HCPCS: 97597; 97607; 99213

== ENCOUNTER → 2021-08-10 13:22 | Outpatient (CLI) | payer BC, MEDICARE, OTHER, SELFPAY ==
[2021-06-22 15:43] VITALS: BMI 24.7
== END ==
PROVIDERS: PCP Internal Medicine; Referring Provider Internal Medicine; Visit Provider Family Medicine
DX: S51.002A Unspecified open wound of left elbow, initial encounter (principal)
CPT/HCPCS: 97607

== ENCOUNTER → 2021-08-17 14:11 | Outpatient (CLI) | payer BC, MEDICARE, OTHER, SELFPAY ==
[2021-06-22 15:43] VITALS: BMI 24.7
== END ==
PROVIDERS: PCP Internal Medicine; Referring Provider Internal Medicine; Visit Provider Family Medicine
DX: I73.9 Peripheral vascular disease, unspecified (principal); L97.521 Non-pressure chronic ulcer of other part of left foot limited to breakdown of skin; S51.002A Unspecified open wound of left elbow, initial encounter; M34.9 Systemic sclerosis, unspecified; Z89.511 Acquired absence of right leg below knee; Z89.412 Acquired absence of left great toe; Z89.422 Acquired absence of other left toe(s)
CPT/HCPCS: 97597; 97607; 99212

== ENCOUNTER → 2021-08-24 11:20 | Outpatient (CLI) | payer BC, MEDICARE, OTHER, SELFPAY ==
[2021-06-22 15:43] VITALS: BMI 24.7
== END ==
PROVIDERS: PCP Internal Medicine; Referring Provider Internal Medicine; Visit Provider Family Medicine
DX: I73.9 Peripheral vascular disease, unspecified (principal); L97.521 Non-pressure chronic ulcer of other part of left foot limited to breakdown of skin; S51.002A Unspecified open wound of left elbow, initial encounter; M34.9 Systemic sclerosis, unspecified; Z89.511 Acquired absence of right leg below knee; Z89.412 Acquired absence of left great toe; Z89.422 Acquired absence of other left toe(s)
CPT/HCPCS: 11042; 97607; 99212

== ENCOUNTER → 2021-08-30 12:37 | Outpatient (CLI) | payer BC, MEDICARE, OTHER, SELFPAY ==
[2021-06-22 15:43] VITALS: BMI 24.7
[2021-08-30 14:09] LABS: Gamma Glutamyl Transpeptidase 179 U/L (12-43)
== END ==
PROVIDERS: PCP Internal Medicine; Referring Provider Internal Medicine; Visit Provider Internal Medicine
DX: R74.8 Abnormal levels of other serum enzymes (principal)
CPT/HCPCS: 36415; 82977; 83915

== ENCOUNTER → 2021-08-30 14:40 | Outpatient (CLI) | payer BC, MEDICARE, OTHER, SELFPAY ==
[2021-06-22 15:43] VITALS: BMI 24.7
== END ==
PROVIDERS: PCP Internal Medicine; Referring Provider Internal Medicine; Visit Provider Family Medicine
DX: S51.002A Unspecified open wound of left elbow, initial encounter (principal); M34.9 Systemic sclerosis, unspecified; Z89.511 Acquired absence of right leg below knee; Z89.412 Acquired absence of left great toe; Z89.422 Acquired absence of other left toe(s)
CPT/HCPCS: 97597; 99213

== ENCOUNTER → 2021-09-26 10:39 | Outpatient (CLI) | payer BC, MEDICARE, OTHER, SELFPAY ==
[2021-06-22 15:43] VITALS: BMI 24.7
== END ==
PROVIDERS: PCP Internal Medicine; Referring Provider Internal Medicine; Visit Provider Family Medicine
DX: S51.002A Unspecified open wound of left elbow, initial encounter (principal); M34.9 Systemic sclerosis, unspecified
CPT/HCPCS: 99212; 99213

== ENCOUNTER → 2021-10-09 11:24 | Outpatient (CLI) | payer BC, MEDICARE, OTHER, SELFPAY ==
[2021-06-22 15:43] VITALS: BMI 24.7
== END ==
PROVIDERS: PCP Internal Medicine; Referring Provider Internal Medicine; Visit Provider Family Medicine
DX: Z09 Encounter for follow-up examination after completed treatment for conditions other than malignant neoplasm (principal); Z87.2 Personal history of diseases of the skin and subcutaneous tissue
CPT/HCPCS: 99212

== ENCOUNTER → 2022-01-23 10:50 | Outpatient (CLI) | payer BC, MEDICARE, OTHER, SELFPAY ==
[2021-06-22 15:43] VITALS: BMI 24.7
== END ==
PROVIDERS: PCP Internal Medicine; Referring Provider Internal Medicine; Visit Provider Family Medicine
DX: L98.496 Non-pressure chronic ulcer of skin of other sites with bone involvement without evidence of necrosis (principal); L08.9 Local infection of the skin and subcutaneous tissue, unspecified; M34.1 CR(E)ST syndrome; I73.00 Raynaud's syndrome without gangrene; I73.9 Peripheral vascular disease, unspecified; I25.119 Atherosclerotic heart disease of native coronary artery with unspecified angina pectoris; Z89.511 Acquired absence of right leg below knee; Z89.412 Acquired absence of left great toe; Z89.422 Acquired absence of other left toe(s)
CPT/HCPCS: 11042; 87070; 87075; 87205; 99213; 99214

== ENCOUNTER → 2022-01-30 13:22 | Outpatient (CLI) | payer BC, MEDICARE, OTHER, SELFPAY ==
[2021-06-22 15:43] VITALS: BMI 24.7
--- NOTE | 2022-01-30 | DI.MRI.S_ITS ---
PROCEDURE: MR HAND RT WO/W CON INDICATIONS: Local infection of the skin and subcutaneous tissue, unspeci TECHNIQUE: Noncontrast coronal T1 spin echo and T2 fast spin echo with and without fat saturation, sagittal T1 spin echo and STIR, axial T1 spin echo with and without fat saturation and T2 fast spin echo with fat saturation. After the administration of contrast, axial/sagittal/coronal T1 spin echo with fat saturation through the right hand. COMPARISON: None. FINDINGS: Image quality: Excellent. Bones: There is flexion of the 5th distal interphalangeal joint. Osseous edema and enhancement are seen within the 5th middle phalangeal head and 5th distal phalanx. The remaining visualized osseous structures demonstrate normal signal intensity. Degenerative changes are seen at the 1st carpometacarpal joint. Soft tissues: Skin irregularity is seen at the dorsal aspect of the distal 5th finger overlying the distal interphalangeal joint, which could represent a laceration or skin wound. There is soft tissue edema and enhancement throughout the 5th finger that is more prominent distally. The 5th extensor tendon insertion onto the distal phalangeal base is not well seen and avulsion or laceration of the distal tendon is suspected. The extensor tendon appears to be intact at the level of the proximal middle phalanges. The 5th flexor tendon is intact. The visualized radial and ulnar collateral ligaments are grossly intact. Mild tenosynovitis is seen involving the 4th flexor tendons at the level of the metacarpals. There is also mild flexor pollicis longus tenosynovitis of the level of the 1st proximal phalanx. The remaining extensor tendons are grossly intact. No soft tissue masses are visualized. The scanned muscles demonstrate normal overall bulk. IMPRESSION: 1. Skin irregularity is seen at the dorsal aspect of the distal 5th finger that may be secondary to a laceration or skin wound. There is adjacent soft tissue edema and enhancement within the 5th finger. Findings are nonspecific and correlation with clinical findings is recommended to exclude cellulitis. No focal fluid collection is seen to suggest abscess formation. 2. Osseous edema and enhancement within the 5th middle phalangeal head and 5th distal phalanx is nonspecific and may be secondary to trauma or infection. No significant distal interphalangeal joint effusion is seen. Recommend correlation with radiographs and clinical findings to exclude osteomyelitis. 3. Fixed flexion of the 5th distal interphalangeal joint. The 5th extensor tendon insertion onto the distal phalangeal base is not well seen, which is suspicious for complete tearing, possibly due to traumatic avulsion or laceration. Dictated by: Toni Arevalo M.D. on 01/31/2022 at 11:03 Approved by: Toni Arevalo M.D. on 01/31/2022 at 11:44
== END ==
PROVIDERS: PCP Internal Medicine; Referring Provider Family Medicine; Visit Provider Family Medicine
DX: L08.9 Local infection of the skin and subcutaneous tissue, unspecified (principal); R60.0 Localized edema
CPT/HCPCS: 73220; A9579

== ENCOUNTER → 2022-02-06 14:06 | Outpatient (CLI) | payer BC, MEDICARE, OTHER, SELFPAY ==
[2021-06-22 15:43] VITALS: BMI 24.7
== END ==
PROVIDERS: PCP Internal Medicine; Referring Provider Internal Medicine; Visit Provider Family Medicine
DX: L98.496 Non-pressure chronic ulcer of skin of other sites with bone involvement without evidence of necrosis (principal); L97.526 Non-pressure chronic ulcer of other part of left foot with bone involvement without evidence of necrosis; M34.1 CR(E)ST syndrome; I73.00 Raynaud's syndrome without gangrene; I73.9 Peripheral vascular disease, unspecified; G62.9 Polyneuropathy, unspecified; L08.9 Local infection of the skin and subcutaneous tissue, unspecified; Z89.511 Acquired absence of right leg below knee; Z89.412 Acquired absence of left great toe; Z89.422 Acquired absence of other left toe(s)
CPT/HCPCS: 11042; 97597; 99214

== ENCOUNTER → 2022-02-27 13:54 | Outpatient (CLI) | payer BC, MEDICARE, OTHER, SELFPAY ==
[2021-06-22 15:43] VITALS: BMI 24.7
== END ==
PROVIDERS: PCP Internal Medicine; Referring Provider Internal Medicine; Visit Provider Family Medicine
DX: M34.1 CR(E)ST syndrome (principal); I70.245 Atherosclerosis of native arteries of left leg with ulceration of other part of foot; I73.00 Raynaud's syndrome without gangrene; G90.09 Other idiopathic peripheral autonomic neuropathy; R60.0 Localized edema
CPT/HCPCS: 87070; 87075; 87077; 87147; 87186; 87205; 99212; 99214

== ENCOUNTER 2022-02-28 17:38 | Emergency (ER) | payer BC, MEDICARE, OTHER, SELFPAY ==
[2021-06-22 15:43] VITALS: BMI 24.7
[2022-02-28 17:46] VITALS: BP 153/65; PULSE 73; RESP 24; TEMP 37.4; O2SAT 98; BMI 24.7
--- NOTE | 2022-02-28 20:07 | ED_ITS ---
HPI - Fever General Chief Complaint: Fever Stated Complaint: covid+, asthma Time Seen by Provider: 02/28/22 20:00 Source: patient Mode of arrival: Ambulatory History of Present Illness HPI Narrative: 71-year-old female nonsmoker with history of asthma presents with her sister, who both have known COVID with positive home test earlier today. Patient states that she is had some nasal congestion and mild increased wheezing, though states it is not responding to her chronic medications quite as well as usual. She takes Advair and Combivent but has no emergency albuterol. She has not been on oral steroids in quite some time. She denies any significant shortness of breath, measured fever, nausea, vomiting or diarrhea. Related Data Home Medications Medication Instructions Recorded Confirmed aspirin 81 mg tablet,delayed 81 mg PO QDAY ##0 11/14/12 06/22/21 release fluticasone 250 mcg-salmeterol 50 1 ea inhalation BID ##0 11/14/12 06/22/21 mcg/dose blistr powdr for inhalation (Advair Diskus) ibuprofen 200 mg tablet 400 mg PO PRN ##0 11/14/12 06/22/21 atorvastatin 80 mg tablet (Lipitor) 80 mg PO DAILY 09/30/18 06/22/21 fluticasone 500 mcg-salmeterol 50 1 inhalation inhalation BID 09/30/18 06/22/21 mcg/dose blistr powdr for inhalation (Advair Diskus) ipratropium 20 mcg-albuterol 100 1 puff inhalation Q4HR 09/30/18 06/22/21 mcg/actuation mist for inhalation (Combivent Respimat) metoclopramide HCl 5 mg tablet 5 mg PO BEDTIME 09/30/18 06/22/21 (Reglan) montelukast 10 mg tablet 10 mg PO QPM 09/30/18 06/22/21 (Singulair) olmesartan 40 mg tablet (Benicar) 40 mg PO BEDTIME 09/30/18 06/22/21 omeprazole 20 mg capsule,delayed 20 mg PO BEDTIME 09/30/18 06/22/21 release pregabalin 200 mg capsule (Lyrica) 200 mg PO BID 09/30/18 06/23/21 sertraline 25 mg tablet 25 mg PO BEDTIME 09/30/18 06/22/21 amlodipine 5 mg tablet 5 mg PO BEDTIME 06/23/21 06/23/21 melatonin 5 mg PO BEDTIME sleep 06/23/21 06/23/21 Previous Rx's Medication Instructions Recorded oxycodone 5 mg tablet 5 mg PO Q6H PRN pain #10 tabs 06/21/21 L.acidophilus-L.bulgar-B.bifid-S.thermoph 1 ea PO TIDWM #90 tabs 06/24/21 1 billion cell-250 mg tablet (Bacid) amoxicillin 875 mg-potassium 1 tab PO BID #20 tabs 06/24/21 clavulanate 125 mg tablet (Augmentin) prednisone 10 mg tablet See Rx Instructions .Route 02/28/22 .COMPLEX #30 tabs Allergies Allergy/AdvReac Type Severity Reaction Status Date / Time cat dander Allergy Verified 06/22/21 14:03 nifedipine Allergy Verified 06/22/21 14:03 codeine [CODEINE] AdvReac Unknown N/V Verified 06/22/21 14:03 Review of Systems Review of Systems Narrative: GENERAL: Denies chills, fatigue, malaise, fever, sweats. HEENT: See HPI RESPIRATORY: See HPI CARDIOVASCULAR: Denies chest pain, palpitations, orthopnea, edema, GASTROINTESTINAL: Denies nausea, vomiting, abdominal pain, diarrhea, constipation, melena. : Denies dysuria, frequency, incontinence, hematuria, urinary retention. MUSCULOSKELETAL: denies weakness, joint pain, or bony pain SKIN: Denies rash, skin lesions, or other NEUROLOGIC: Denies weakness, headache, numbness, change in speech, confusion, seizures, incoordination. PSYCHIATRIC: No concerning psychosocial issues. 12 point review of systems is negative except for those stated above Patient History Medical History Hyperlipidemia Hypertension Peripheral vascular disease Scleroderma Social History marital status: details: Spouse is retired physician household members: spouse Smoking Status: Never smoker alcohol intake: former Smoking Status: Never smoker Substance Use Type: does not use Exam Narrative Exam Narrative: GENERAL: 71[] year old patient appears stated age. Well-developed patient, in mild distress. HEAD: Atraumatic. Normocephalic. EYES: Pupils equal round and reactive. Extraocular motions intact. No scleral icterus. No injection or drainage. ENT: Nose without bleeding, purulent drainage. Throat without erythema, tonsillar hypertrophy or exudate. Airway patent. NECK: Trachea midline. Non tender CARDIOVASCULAR: Regular rate and rhythm without murmurs, gallops, or rubs. RESPIRATORY: Clear to auscultation. Breath sounds equal bilaterally. No wheezes, rales, or rhonchi. GASTROINTESTINAL: Abdomen soft, non-tender, nondistended. EXTREMITIES: No edema or joint tenderness. BACK: Nontender without deformity or crepitance. No flank tenderness. NEURO: AOx3. SKIN: No rash or erythema of visible areas Initial Vital Signs Initial Vital Signs: Vital Signs Temperature 99.4 F 02/28/22 17:46 Pulse Rate 73 02/28/22 17:46 Respiratory Rate 24 02/28/22 17:46 Blood Pressure 153/65 H 02/28/22 17:46 Pulse Oximetry 98 02/28/22 17:46 Oxygen Delivery Method 02/28/22 17:46 Course Orders Ordered: Discontinued Medications Albuterol (Albuterol Hfa Prepack) [facility] Stop: 02/28/22 20:28 Last Admin: 02/28/22 20:35 Dose: 1 box Documented By: AP Vital Signs Vital signs: Vital Signs - 8 hr 02/28/22 17:46 Temperature 99.4 F Pulse Rate 73 Respiratory Rate 24 Blood Pressure 153/65 H Pulse Oximetry 98 Oxygen Delivery Method Room Air MDM - Fever MDM Narrative Medical decision making narrative: Patient has a very reassuring history and physical exam. She has no significant work of breathing, use of accessory muscles or need for supplemental oxygen. Did discuss the addition of a course of oral steroids to help with her asthma as well as a prescription for a rescue inhaler. There is no indication for an extensive workup including labs and advanced imaging. We did briefly discuss the possibility of an Rx for Paxlovid but at her discussion of lack of FDA approval, medication interactions, and possibility of rebound symptoms she elects to forego its use. Return precautions discussed and questions answered to her apparent satisfaction Discharge Plan Departure Patient Disposition: Home Clinical Impression: COVID-19 Instructions: COVID-19 Activity Restrictions/Additional Instructions: As we discussed a prescription for a steroid taper has been sent to your pharmacy ([facility]) in [place] *You have been diagnosed with [ COVID-19] *What to do: ?* per recommendations from the CDC and the [facility] Department of Health ?* stay home except to get medical care. ?Restrict activities outside your home, except for getting medical care. ?Do not go to work, school, or public areas. ?Avoid using public transportation, ride sharing, or taxis. ?* separate yourself from other people in your home. ?* call ahead before visiting your doctor ?* Wear a facemask ?* Cover your coughs and sneezes ?* Clean your hands often ?* Avoid sharing household items ?* Clean all high-touch services every day ?* Monitor your symptoms and seek prompt medical attention if your illness is worsening, particularly with difficulty in breathing. You may discontinue your isolation when: ?1. You have been fever-free for at least 24 hours without the use of fever reducing medication, AND ?2. Your symptoms are getting better, AND ?3. At least 5 days have passed since symptoms first appeared ?4. If you have fever, continue to stay home until fever resolves Individuals with laboratory confirmed COVID-19 who have not had any symptoms may discontinue home isolation when at least 5 days have passed since the date of their first COVID-19 diagnostic test and have had no subsequent illness You should notifiy any friends and family that have been in close contact *If up to date on COVID Vaccines, then they do not need to quarantine unless symptoms develop. Get tested on day 5 (or sooner if symptoms develop). Take precautions and watch for symptoms until day 10 *If NOT up to date on COVID Vaccines, then CDC recommends quarantine for at least 5 full days. Wear a well fitted mask at home if you must be around others. If they ?develop symptoms they should get tested. If they remain asymptomatic they should get tested on day 5. They should take precautions and monitor for sy mptoms until day 10. Prescriptions: New prednisone 10 mg tablet See Rx Instructions .ROUTE .COMPLEX Qty: 30 0RF Rx Instructions: Day 1,2,3: 40mg PO Daily Day 4,5,6: 30mg PO Daily Day 7,8,9: 20mg PO Daily Day 10,11,12: 10mg PO Daily #30 No Action sertraline 25 mg tablet 25 mg PO BEDTIME Rx Instructions: take 3 tablets at bedtime. Advair Diskus 500-50 mcg/dose blister with device 1 inhalation INHALATION BID omeprazole 20 mg capsule,delayed release(DR/EC) 20 mg PO BEDTIME Combivent Respimat 20-100 mcg/actuation mist 1 puff INHALATION Q4HR atorvastatin [Lipitor] 80 mg tablet 80 mg PO DAILY olmesartan [Benicar] 40 mg tablet 40 mg PO BEDTIME montelukast [Singulair] 10 mg tablet 10 mg PO QPM metoclopramide HCl [Reglan] 5 mg tablet 5 mg PO BEDTIME Lyrica 200 mg capsule 200 mg PO BID fluticasone propion-salmeterol [Advair Diskus] 250 MCG/50 MCG blister with device 1 ea inhalation BID Qty: 0 aspirin 81 MG tablet,delayed release (DR/EC) 81 mg PO QDAY Qty: 0 ibuprofen 200 MG tablet 400 mg PO PRN Qty: 0 amlodipine 5 mg tablet 5 mg PO BEDTIME melatonin 5 mg PO BEDTIME Bacid 1 billion cell- 250 mg Tablet 1 ea PO TIDWM Qty: 90 0RF amoxicillin-pot clavulanate [Augmentin] 875-125 mg tablet 1 tab PO BID Qty: 20 0RF oxycodone 5 mg tablet 5 mg PO Q6H PRN (Reason: pain) Qty: 10 0RF Referrals: Dorian Dumont MD [Primary Care Provider] - Visit Report Forms: Patient Portal/API
[2022-02-28] MEDS: ALBUTEROL HFA PREPACK 1 BOX MISC (20:35)
== END 2022-02-28 20:44 | disposition home or self-care (01) ==
PROVIDERS: Emergency Provider Emergency Medicine; PCP Internal Medicine
DX: U07.1 COVID-19 (principal)
CPT/HCPCS: 99281

== ENCOUNTER → 2022-04-09 10:35 | Outpatient (CLI) | payer BC, MEDICARE, OTHER, SELFPAY ==
[2021-06-22 15:43] VITALS: BMI 24.7
== END ==
PROVIDERS: PCP Internal Medicine; Referring Provider Internal Medicine; Visit Provider Family Medicine
DX: S61.204A Unspecified open wound of right ring finger without damage to nail, initial encounter (principal); I70.245 Atherosclerosis of native arteries of left leg with ulceration of other part of foot; L97.526 Non-pressure chronic ulcer of other part of left foot with bone involvement without evidence of necrosis
CPT/HCPCS: 99213

== ENCOUNTER → 2022-04-23 10:22 | Outpatient (CLI) | payer BC, MEDICARE, OTHER, SELFPAY ==
[2021-06-22 15:43] VITALS: BMI 24.7
== END ==
PROVIDERS: PCP Internal Medicine; Referring Provider Internal Medicine; Visit Provider Family Medicine
DX: M34.1 CR(E)ST syndrome (principal); I73.00 Raynaud's syndrome without gangrene; S61.206A Unspecified open wound of right little finger without damage to nail, initial encounter; L97.526 Non-pressure chronic ulcer of other part of left foot with bone involvement without evidence of necrosis; I73.9 Peripheral vascular disease, unspecified; G90.09 Other idiopathic peripheral autonomic neuropathy
CPT/HCPCS: 99212; 99213

== ENCOUNTER → 2022-05-22 11:02 | Outpatient (CLI) | payer BC, MEDICARE, OTHER, SELFPAY ==
[2021-06-22 15:43] VITALS: BMI 24.7
== END ==
PROVIDERS: PCP Internal Medicine; Referring Provider Internal Medicine; Visit Provider Family Medicine
DX: M34.1 CR(E)ST syndrome (principal); L97.526 Non-pressure chronic ulcer of other part of left foot with bone involvement without evidence of necrosis; G90.09 Other idiopathic peripheral autonomic neuropathy; I73.9 Peripheral vascular disease, unspecified; I73.00 Raynaud's syndrome without gangrene
CPT/HCPCS: 97597; 99213

== ENCOUNTER → 2022-07-10 10:57 | Outpatient (CLI) | payer BC, MEDICARE, OTHER, SELFPAY ==
[2021-06-22 15:43] VITALS: BMI 24.7
== END ==
PROVIDERS: PCP Internal Medicine; Referring Provider Internal Medicine; Visit Provider Surgery
DX: I73.9 Peripheral vascular disease, unspecified (principal); L97.521 Non-pressure chronic ulcer of other part of left foot limited to breakdown of skin; M34.1 CR(E)ST syndrome; G90.09 Other idiopathic peripheral autonomic neuropathy
CPT/HCPCS: 99213

== ENCOUNTER → 2022-08-07 10:28 | Outpatient (CLI) | payer BC, MEDICARE, OTHER, SELFPAY ==
[2021-06-22 15:43] VITALS: BMI 24.7
== END ==
PROVIDERS: PCP Internal Medicine; Referring Provider Internal Medicine; Visit Provider Surgery
DX: M34.1 CR(E)ST syndrome (principal); I73.9 Peripheral vascular disease, unspecified; L97.526 Non-pressure chronic ulcer of other part of left foot with bone involvement without evidence of necrosis; G90.09 Other idiopathic peripheral autonomic neuropathy; Z89.511 Acquired absence of right leg below knee
CPT/HCPCS: 99213

== ENCOUNTER → 2022-08-20 15:05 | Outpatient (CLI) | payer BC, MEDICARE, OTHER, SELFPAY ==
[2021-06-22 15:43] VITALS: BMI 24.7
== END ==
PROVIDERS: PCP Internal Medicine; Referring Provider Internal Medicine; Visit Provider Surgery
DX: M34.1 CR(E)ST syndrome (principal); I73.9 Peripheral vascular disease, unspecified; L97.521 Non-pressure chronic ulcer of other part of left foot limited to breakdown of skin; L03.032 Cellulitis of left toe; G90.09 Other idiopathic peripheral autonomic neuropathy
CPT/HCPCS: 99212; 99213

== ENCOUNTER → 2022-08-28 10:29 | Outpatient (CLI) | payer BC, MEDICARE, OTHER, SELFPAY ==
[2021-06-22 15:43] VITALS: BMI 24.7
== END ==
PROVIDERS: PCP Internal Medicine; Referring Provider Internal Medicine; Visit Provider Surgery
DX: M34.1 CR(E)ST syndrome (principal); I73.9 Peripheral vascular disease, unspecified; L97.526 Non-pressure chronic ulcer of other part of left foot with bone involvement without evidence of necrosis; G90.09 Other idiopathic peripheral autonomic neuropathy; L03.032 Cellulitis of left toe
CPT/HCPCS: 99213

== ENCOUNTER → 2022-10-10 09:28 | Outpatient (CLI) | payer BC, MEDICARE, OTHER, SELFPAY ==
[2021-06-22 15:43] VITALS: BMI 24.7
== END ==
PROVIDERS: PCP Internal Medicine; Referring Provider Internal Medicine; Visit Provider Surgery
DX: L97.522 Non-pressure chronic ulcer of other part of left foot with fat layer exposed (principal); M34.1 CR(E)ST syndrome; I73.9 Peripheral vascular disease, unspecified
CPT/HCPCS: 99213

== ENCOUNTER → 2022-11-20 11:11 | Outpatient (CLI) | payer BC, MEDICARE, OTHER, SELFPAY ==
[2021-06-22 15:43] VITALS: BMI 24.7
== END ==
PROVIDERS: PCP Internal Medicine; Referring Provider Internal Medicine; Visit Provider Surgery
DX: L97.522 Non-pressure chronic ulcer of other part of left foot with fat layer exposed (principal); M34.1 CR(E)ST syndrome; I73.9 Peripheral vascular disease, unspecified; G90.09 Other idiopathic peripheral autonomic neuropathy
CPT/HCPCS: 97597; 99213

== ENCOUNTER → 2023-01-31 10:32 | Outpatient (CLI) | payer BC, MEDICARE, OTHER, SELFPAY ==
[2021-06-22 15:43] VITALS: BMI 24.7
== END ==
PROVIDERS: PCP Internal Medicine; Referring Provider Internal Medicine; Visit Provider Surgery
DX: M34.1 CR(E)ST syndrome (principal); I73.9 Peripheral vascular disease, unspecified; L97.522 Non-pressure chronic ulcer of other part of left foot with fat layer exposed; G62.9 Polyneuropathy, unspecified; I25.119 Atherosclerotic heart disease of native coronary artery with unspecified angina pectoris; Z89.511 Acquired absence of right leg below knee; Z89.412 Acquired absence of left great toe; Z95.820 Peripheral vascular angioplasty status with implants and grafts; Z95.818 Presence of other cardiac implants and grafts
CPT/HCPCS: 99213

== ENCOUNTER → 2023-09-18 13:11 | Outpatient (CLI) | payer BC, MEDICARE, OTHER, SELFPAY ==
[2021-06-22 15:43] VITALS: BMI 24.7
== END ==
PROVIDERS: PCP Student in an Organized Health Care Education/Training Program; Referring Provider Internal Medicine Critical Care Medicine; Visit Provider Internal Medicine Critical Care Medicine
DX: J45.909 Unspecified asthma, uncomplicated (principal)
CPT/HCPCS: 94060; 94726; 94729

== ENCOUNTER → 2024-01-31 12:33 | Outpatient (CLI) | payer BC, MEDICARE, OTHER, SELFPAY ==
[2021-06-22 15:43] VITALS: BMI 24.7
--- NOTE | 2024-01-31 12:37 | DI.ECHO.S_ITS ---
[facility] : : [address] : : [place] : : [id number] : : Phone: [phone] Echocardiogram Report + + :Name: AMAN JERONIMO Study Date: 01/31/2024 Height: 62 in : :[facility] ReadingLocation: Weight: 135 lb : : Gender: Female BSA: 1.6 m2 : :: 1950 Age: 73 yrs BP: 178/86 mmHg: :Reason For Study: EVALUATE FOR PAH : :Ordering Physician: JESI, : :SHIV Performed By: Alexandria Shah : :Referring: SHIV DENNISON : + + Interpretation Summary Normal sinus rhythm. Normal LV size, wall thickness, wall motion and LV sysotlic function. EF is 50-55%. Severe LA enlargement with aneurysmal interatrial septum bowed to the right; no shunt; this observation is consistent with elevated LA pressure. Aortic sclerosis with mild associated aortic regurgitation. Moderate MAC with mild associated mitral regurgitation. Mild TR; estimated PA systolic pressure is 39 mm Hg assuming RA pressure of 3 mm Hg. RV size is normal. Trace pericardial effusion. Compared to prior study in 2019 MAC progressed from mild to moderate. Pericardial effusion is new. Procedure: A two-dimensional transthoracic echocardiogram with color flow and Doppler was performed. The study quality was technically adequate. Comparison is made with the echocardiogram of 12/01/2018. The patient was in sinus rhythm with heart rates between 60-70 bpm during the exam. Left Ventricle: The left ventricle is normal in size and wall thickness. The ejection fraction is estimated to be 55-60%. Right Ventricle: The right ventricle is normal in size, thickness and function. Atria: The left atrium is severely dilated. The right atrium is normal in size. There is no Doppler evidence for an interatrial shunt. The atrial septum is aneurysmal. Mitral Valve: There is moderate mitral annular calcification. The mitral valve leaflets are mildly calcified. There is mild mitral regurgitation. Aortic Valve: There is discrete nodular thickening of the non- coronary cusp. There is moderate aortic valve sclerosis. There is no aortic valve stenosis. There is mild aortic regurgitation. Tricuspid Valve: The tricuspid valve is normal in structure and function. There is mild tricuspid regurgitation. Pulmonary artery pressures cannot be estimated because of the lack of a measurable TR jet velocity. Pulmonic Valve: The pulmonic valve leaflets are thin and pliable; valve motion is normal. There is mild pulmonic regurgitation. Great Vessels: The aortic root is normal size. The dimensions of the ascending aorta are normal. The IVC is of normal diameter and collapses greater than 50% with a sniff. This suggests a low right atrial pressure of 3 mm Hg. Pericardium/ Pleura There is no pericardial effusion. There is no pleural effusion. MMode/2D Measurements & Calculations LVIDd: 4.8 cm LVOT diam: 2.0 cm LVIDs: 3.5 cm Ao root diam: 2.8 cm FS: 27.5 % asc Aorta Diam: 3.4 cm EPSS: 1.3 cm Ao Arch Diam (Prox Trans): 2.7 cm IVSd: 0.99 cm LVPWd: 0.87 cm LV pacheco. diameter/BSA (cm/m^2): 3.0 LV sys. diameter/BSA (cm/m^2): 2.2 LA A2 area: 20.5 cm2 RA long axis: 4.6 cm LA A4 area: 28.5 cm2 RA area: 13.5 cm2 LA length (vol): 6.2 cm RA vol: 33.6 ml LA vol: 79.9 ml RA : 20.8 ml/m2 LA vol index: 49.4 ml/m2 IVC diam: 1.7 cm RVD1 (basal): 3.9 cm TAPSE: 2.1 cm Doppler Measurements & Calculations Ao V2 max: 172.1 cm/sec LVOT Max Mehran: 94.0 cm/sec Ao V2 mean: 114.6 cm/sec LV V1 max P.5 mmHg Ao max P.8 mmHg LV V1 VTI: 17.7 cm Ao mean P.9 mmHg LOKESH(I,D): 1.4 cm2 Ao V2 VTI: 39.5 cm LOKESH(V,D): 1.6 cm2 sev ratio: 0.45 LOKESH indexed to BSA (cm^2/m^2): 0.84 MV E max mehran: 101.8 cm/sec PA V2 max: 78.2 cm/sec MV A max mehran: 119.5 cm/sec PA V2 mean: 54.6 cm/sec MV E/A: 0.85 PA mean P.3 mmHg Med Peak E' Mehran: 3.3 cm/sec PA pr(Accel): 36.2 mmHg E/E' med: 31.1 Lat Peak E' Mehran: 4.4 cm/sec E/E' lat: 22.9 E/e' average: 27.0 MV dec time: 0.23 sec SV(LVOT): 53.5 ml Electronically signed by: Crys James M.D. on [place] Physician:02/01/2024 03:05 AM
== END ==
LOC: ECHO 12:36
PROVIDERS: PCP Student in an Organized Health Care Education/Training Program; Referring Provider Internal Medicine Critical Care Medicine; Visit Provider Internal Medicine Critical Care Medicine
DX: M34.9 Systemic sclerosis, unspecified (principal); I08.3 Combined rheumatic disorders of mitral, aortic and tricuspid valves
CPT/HCPCS: 93306

== ENCOUNTER → 2024-07-24 09:51 | Outpatient (CLI) | payer BC, MEDICARE, OTHER, SELFPAY ==
[2021-06-22 15:43] VITALS: BMI 24.7
--- NOTE | 2024-07-24 09:57 | DI.RAD.S_ITS ---
PROCEDURE: FL BARIUM SWALLOW INDICATIONS: Dysphagia COMPARISON: [facility], RG, XR CXR 2V, 12/25/2023, 15:33. FINDINGS: Function: The esophagus is markedly patulous. There is a stricture at the gastroesophageal junction. The calibrated barium tablet which measures 13 mm was not seen passing through the strictured throughout the exam. No hiatal hernia is demonstrated. The patient was able to stand at about 52? inclination. Barium clears from the a esophagus in this position. However, when the patient is laid flat contrast flows into the esophagus and does not clear throughout the exam despite drinking water. No gastroesophageal reflux is elicited. Morphology: Air-contrast images demonstrate normal mucosal morphology. Single contrast views show no extrinsic mass effects or diverticula. Limited images of the stomach demonstrate normal appearance. IMPRESSION: Lower esophageal stricture. The esophagus is patulous with diminished motility. The calibrated barium tablet measuring 13 mm does not pass through the gastroesophageal junction. The esophagus only clears when in the semi upright position. Dictated by: Tripp Kern M.D. on 07/24/2024 at 12:04 Approved by: Tripp Kern M.D. on 07/24/2024 at 12:12
== END ==
PROVIDERS: PCP Family Medicine; Referring Provider Internal Medicine Gastroenterology; Visit Provider Internal Medicine Gastroenterology
DX: K22.2 Esophageal obstruction (principal); R13.10 Dysphagia, unspecified
CPT/HCPCS: 74220